=== PATIENT | female | born 1950 | race Caucasian/White ===

== ENCOUNTER 2019-09-10 14:56 | Inpatient (IN) | payer MEDICARE, OTHER ==
[~2019-09-10] VITALS: Ht 170.2 cm; Wt 71.9 kg
--- NOTE | 2019-09-10 16:24 | EKG ---
[address] [address] Test Date: 2019-09-10 Test Time: 16:20:06 Pat Name: FERNANDO SERNA Department: Room: Gender: F [employer]: THERESE : 1950 Requested By: YOSSI BRUNO Order Number: [id number] Reading MD: Measurements Intervals [place] Rate: 74 P: 10 VT: 168 QRS: 40 QRSD: 80 T: 50 QT: 366 QTc: 411 Interpretive Statements SINUS RHYTHM OTHERWISE NORMAL ECG RI6.01 No previous ECG available for comparison
[2019-09-10 16:40] LABS: BASO % 1 % (0-3); EOS % 0 % (0-3); HEMATOCRIT 37.1 % (36.0-47.0); LYMPH # 1.9 x10^3/uL (1.0-4.8); LYMPH % 27 % (24-48); MEAN CORPUSCULAR HEMOGLOBIN 29 pg (25-35); MEAN CORPUSCULAR HGB CONC 32 g/dL (31-37); MEAN CORPUSCULAR VOLUME 90 fL (79-100); MONO % 14 % (0-9); NEUT % 58 % (31-73); PLATELET COUNT 291 x10^3/uL (140-400); RED BLOOD COUNT 4.14 x10^6/uL (3.50-5.40); RED CELL DISTRIBUTION WIDTH 15.6 % (11.5-14.5); WHITE BLOOD COUNT 6.9 x10^3/uL (4.0-11.0)
[2019-09-10 16:51] LABS: BILIRUBIN,URINE NEG (NEG); CLARITY,URINE HAZY; COLOR,URINE YELLOW; GLUCOSE,URINE NEG (NEG)
[2019-09-10 16:52] LABS: BACTERIA,URINE 0 /HPF (0-FEW); NITRITE,URINE NEG (NEG); RBC,URINE OCC /HPF (0-2); UROBILINOGEN,URINE 4 mg/dL (0.2 mg/dL); WBC,URINE >40 /HPF (0-4)
[2019-09-10 16:53] LABS: SQUAMOUS EPITHELIAL CELL,UR OCC /LPF
[2019-09-10 17:06] LABS: ACETAMIN < 2.0 mcg/mL (10-30); SALIC 0.8 mg/dL (2.8-20.0)
[2019-09-10] MEDS ORDERED: DULO60CA6 PO (17:07)
[2019-09-10] MEDS ORDERED: BISM262O20 PO (17:07)
[2019-09-10] MEDS ORDERED: [UNRECOGNIZED DRUG - CODE] MM (17:07)
[2019-09-10] MEDS ORDERED: LIPITOR80 MG PO (17:07)
[2019-09-10] MEDS ORDERED: METF-551 PO (17:07)
[2019-09-10] MEDS ORDERED: LAMO25TA5 PO (17:07)
[2019-09-10] MEDS ORDERED: RISP1TAB3 PO (17:07)
[2019-09-10] MEDS ORDERED: CYAN100072 PO (17:07)
[2019-09-10] MEDS ORDERED: RISP0.5T3 PO (17:07)
[2019-09-10] MEDS ORDERED: CALC400T5 PO (17:07)
[2019-09-10] MEDS ORDERED: ASPI-171 PO (17:07)
[2019-09-10] MEDS ORDERED: METO25TA4 PO (17:07)
[2019-09-10] MEDS ORDERED: MELA5CAP PO (17:07)
[2019-09-10] MEDS ORDERED: PROM118S9 PO (17:07)
[2019-09-10] MEDS ORDERED: ACET325C6 PO (17:07)
[2019-09-10] MEDS ORDERED: DICL100G28 TP (17:07)
[2019-09-10] MEDS ORDERED: MAGN400O7 PO (17:07)
[2019-09-10] MEDS ORDERED: LOPE-101 PO (17:07)
[2019-09-10] MEDS ORDERED: TRAZ-86 PO (17:07)
[2019-09-10] MEDS ORDERED: MENT118G TP ×2 (17:07)
[2019-09-10] MEDS ORDERED: POLY17PO5 PO (17:07)
[2019-09-10] MEDS ORDERED: DEXT1DRO7 OU (17:07)
[2019-09-10] MEDS ORDERED: NITR100C62 PO (17:07)
[2019-09-10] MEDS ORDERED: FLUT9.9S NS (17:07)
--- NOTE | 2019-09-10 17:10 | RAD ---
Examination: TIBIA FIBULA RIGHT History: Pain, fall Comparison/Correlation: None Findings: 2 view examination of the right tibia and fibula was performed. Evaluation at the level of the ankle in the frontal view is limited due to mildly oblique positioning. Osteopenia is present. Vascular calcifications present. Narrowing of the ankle joint mortise about the medial and lateral plate like noted. Advanced degenerative remodeling of the lateral compartment is severe with spurring and significant valgus deformity. Bony density which appears well-corticated is noted dorsal to the talonavicular joint. No definite displaced fracture or bony destruction. Impression: Osteopenia. No definite acute fracture. Severe lateral knee compartment degenerative remodeling and valgus deformity. Electronically signed by: Duane Kowalski MD (09/10/2019 5:07 PM) [facility]
[2019-09-10 17:11] LABS: ALBUMIN 3.4 g/dL (3.4-5.0); ALBUMIN/GLOBULIN RATIO 0.9 (1.0-1.7); CALCIUM 9.2 mg/dL (8.5-10.1); CREATININE 0.5 mg/dL (0.6-1.0); GFR 122.7; MAGNESIUM 2.2 mg/dL (1.8-2.4); POTASSIUM 4.1 mmol/L (3.5-5.1); TOTAL BILIRUBIN 0.6 mg/dL (0.2-1.0); TOTAL PROTEIN 7.3 g/dL (6.4-8.2)
--- NOTE | 2019-09-10 17:16 | PHYS DOC ---
Adult General Chief Complaint Chief Complaint: MEDICAL CLEARANCE HPI HPI Patient is a [age] year old [sex] who presents with [] Review of Systems Review of Systems Constitutional: Denies fever or chills [] Eyes: Denies change in visual acuity, redness, or eye pain [] HENT: Denies nasal congestion or sore throat [] Respiratory: Denies cough or shortness of breath [] Cardiovascular: No additional information not addressed in HPI [] GI: Denies abdominal pain, nausea, vomiting, bloody stools or diarrhea [] : Denies dysuria or hematuria [] Musculoskeletal: Denies back pain or joint pain [] Integument: Denies rash or skin lesions [] Neurologic: Denies headache, focal weakness or sensory changes [] Endocrine: Denies polyuria or polydipsia [] All other systems were reviewed and found to be within normal limits, except as documented in this note. Allergies Allergies Allergies Coded Allergies Type Severity Reaction Last Updated Verified amitriptyline Allergy Unknown 09/10/19 Yes bupropion Allergy Unknown 09/10/19 Yes divalproex sodium Allergy Unknown 09/10/19 Yes erythromycin base Allergy Unknown 09/10/19 Yes hydrocodone Allergy Unknown 09/10/19 Yes loxapine Allergy Unknown 09/10/19 Yes molindone Allergy Unknown 09/10/19 Yes topiramate Allergy Unknown 09/10/19 Yes Physical Exam Physical Exam Constitutional: Well developed, well nourished, no acute distress, non-toxic appearance. [] HENT: Normocephalic, atraumatic, bilateral external ears normal, oropharynx moist, no oral exudates, nose normal. [] Eyes: PERRLA, EOMI, conjunctiva normal, no discharge. [] Neck: Normal range of motion, no tenderness, supple, no stridor. [] Cardiovascular:Heart rate regular rhythm, no murmur [] Lungs & Thorax: Bilateral breath sounds clear to auscultation [] Abdomen: Bowel sounds normal, soft, no tenderness, no masses, no pulsatile masses. [] Skin: Warm, dry, no erythema, no rash. [] Back: No tenderness, no CVA tenderness. [] Extremities: No tenderness, no cyanosis, no clubbing, ROM intact, no edema. [] Neurologic: Alert and oriented X 3, normal motor function, normal sensory function, no focal deficits noted. [] Psychologic: Affect normal, judgement normal, mood normal. [] Current Patient Data Lab Results Laboratory Tests Test 09/10/19 16:10 09/10/19 16:22 Urine Collection Type U cath Urine Color Yellow Urine Clarity Hazy Urine pH 6.5 Urine Specific [place] 1.025 Urine Protein 30 mg/dl (NEG-TRACE) Urine Glucose (UA) Neg mg/dL (NEG) Urine Ketones (Stick) Trace mg/dL (NEG) Urine Blood Neg (NEG) Urine Nitrite Neg (NEG) Urine Bilirubin Neg (NEG) Urine Urobilinogen Dipstick 4 mg/dL (0.2 mg/dL) Urine Leukocyte Esterase Mod (NEG) Urine RBC Occ /HPF (0-2) Urine WBC >40 /HPF (0-4) Urine Squamous Epithelial Cells Occ /LPF Urine Bacteria 0 /HPF (0-FEW) Urine Mucus Slight /LPF White Blood Count 6.9 x10^3/uL (4.0-11.0) Red Blood Count 4.14 x10^6/uL (3.50-5.40) Hemoglobin 12.0 g/dL (12.0-15.5) Hematocrit 37.1 % (36.0-47.0) Mean Corpuscular Volume 90 fL (79-100) Mean Corpuscular Hemoglobin 29 pg (25-35) Mean Corpuscular Hemoglobin Concent 32 g/dL (31-37) Red Cell Distribution Width 15.6 % (11.5-14.5) H Platelet Count 291 x10^3/uL (140-400) Neutrophils (%) (Auto) 58 % (31-73) Lymphocytes (%) (Auto) 27 % (24-48) Monocytes (%) (Auto) 14 % (0-9) H Eosinophils (%) (Auto) 0 % (0-3) Basophils (%) (Auto) 1 % (0-3) Neutrophils # (Auto) 4.0 x10^3uL (1.8-7.7) Lymphocytes # (Auto) 1.9 x10^3/uL (1.0-4.8) Monocytes # (Auto) 1.0 x10^3/uL (0.0-1.1) Eosinophils # (Auto) 0.0 x10^3/uL (0.0-0.7) Basophils # (Auto) 0.0 x10^3/uL (0.0-0.2) Prothrombin Time 10.8 SEC (9.4-11.4) Prothrombin Time INR 1.0 (0.9-1.1) Activated Partial Thromboplast Time 26 SEC (23-33) Troponin I Quantitative < 0.017 ng/mL (0-0.055) Salicylates Level 0.8 mg/dL (2.8-20.0) L Salicylate Last Dose Date Unk Salicylate Last Dose Time Unk Acetaminophen Level < 2.0 mcg/mL (10-30) L Acetaminophen Last Dose Date Unk Acetaminophen Last Dose Time Unk Ethyl Alcohol Level < 10 mg/dL (0-10) EKG EKG @ 1620 NSR at 74bpm, NO ST elevation, QRS 80ms, QT/QTc 366/411ms Radiology/Procedures Radiology/Procedures PROCEDURE: TIBIA FIBULA RIGHT Examination: TIBIA FIBULA RIGHT History: Pain, fall Comparison/Correlation: None Findings: 2 view examination of the right tibia and fibula was performed. Evaluation at the level of the ankle in the frontal view is limited due to mildly oblique positioning. Osteopenia is present. Vascular calcifications present. Narrowing of the ankle joint mortise about the medial and lateral plate like noted. Advanced degenerative remodeling of the lateral compartment is severe with spurring and significant valgus deformity. Bony density which appears well-corticated is noted dorsal to the talonavicular joint. No definite displaced fracture or bony destruction. Impression: Osteopenia. No definite acute fracture. Severe lateral knee compartment degenerative remodeling and valgus deformity. Electronically signed by: Duane Kowalski MD (09/10/2019 5:07 PM) [facility] PROCEDURE: CT HEAD AND CERVICAL SPINE WO Exam: CT head and cervical spine INDICATION: Status post fall TECHNIQUE: Sequential axial images through the head and cervical spine were obtained without the administration of IV contrast. Comparisons: None FINDINGS: Head No focal parenchymal lesion or hemorrhage is identified. There is no midline shift or sulcal effacement. No acute vascular territory infarction is identified. Rush-white distinction is preserved. The ventricular system is within normal limits without compression hydrocephalus. The basal cisterns are well maintained. Mild soft tissue contusion overlying the right frontal region scalp There is mucosal thickening within the maxillary sinuses bilaterally with air-fluid levels. Fluid is in frothy secretions are noted within the nasal cavity. No acute fractures. Cervical spine: Vertebral body heights and alignment are well-maintained. Fracture to the cervical spine is not identified. Multilevel spondylotic changes noted in the cervical spine with degenerative disc disease greatest at C6-C7 and C7-T1. Bilateral facet arthropathy is noted throughout the cervical spine. Visualized paraspinal soft tissues are unremarkable. IMPRESSION: 1. Extracranial soft tissue scalp contusion in the right frontal region. No underlying fracture or acute intracranial abnormality identified. 2. Sinus disease as described above. 3. Negative CT C-spine for acute traumatic injury. Exposure: One or more of the following in the visualized dose reduction techniques were utilized for this examination: 1. Automated exposure control 2. Adjustment of the MA and/or KV according to patient size Use of iterative of reconstructive technique Electronically signed by: Beatriz Engel MD (09/10/2019 5:10 PM) [facility] Course & Med Decision Making Course & Med Decision Making Pertinent Labs and Imaging studies reviewed. (See chart for details) [] Dragon Disclaimer Dragon Disclaimer This electronic medical record was generated, in whole or in part, using a voice recognition dictation system. Departure Departure: Impression: Primary Impression: Suicidal ideation Additional Impressions: UTI (urinary tract infection) Schizophrenia Hysteria Fall Contusion of right tibia Disposition: [facility]MITTED [facility]PAT[facility] ([facility] Condition: STABLE Referrals: PCP,UNKNOWN (PCP) Problem Qualifiers Additional Impressions: UTI (urinary tract infection) Urinary tract infection type: acute cystitis Hematuria presence: without hematuria Qualified Codes: N30.00 - Acute cystitis without hematuria Schizophrenia Schizophrenia type: unspecified Qualified Codes: F20.9 - Schizophrenia, unspecified Fall Encounter type: initial encounter Qualified Codes: W19.XXXA - Unspecified fall, initial encounter YOSSI BRUNO DO Sep 10, 2019 17:15
[2019-09-10] MEDS ORDERED: CEPHALEXIN 250 MG CAPSULE PO ONE (17:30)
[2019-09-10] MEDS ORDERED: LORazepam 1 MG TABLET ONE (17:37)
[2019-09-10] MEDS ORDERED: LORazepam 1 MG TABLET PO ONE (17:45)
[2019-09-10] MEDS ORDERED: LOPERAMIDE 2 MG CAPSULE PO PRN (18:30)
[2019-09-10] MEDS ORDERED: MAG HYDROX/AL HYDROX/SIMETH 30 ML ORAL.SUSP PO PRN (18:30)
[2019-09-10] MEDS ORDERED: MAGNESIUM HYDROXIDE 2,400 MG/30 ML ORAL.SUSP. PO PRN (18:30)
[2019-09-10] MEDS ORDERED: BISMUTH SUBSALICYLATE 262 MG/15 ML ORAL.SUSP 236ML BOTTLE. PO PRN (18:30)
[2019-09-10 18:42] VITALS: BP 110/75
[2019-09-10] MEDS ORDERED: BENZOCAINE/MENTHOL LOZNGE 18'S BOX. PO PRN (19:00)
[2019-09-10] MEDS ORDERED: CALCIUM CARBONATE 500 MG TAB.CHEW PO PRN (19:00)
[2019-09-10] MEDS: NITROFURANTOIN MONOHYD/M-CRYST 100 MG CAPSULE. PO SCH ×2 (20:13→20:15)
[2019-09-10] MEDS: MELATONIN 3 MG TABLET PO SCH (20:15)
[2019-09-10] MEDS: risperiDONE 1 MG TABLET. PO SCH (20:17)
[2019-09-10] MEDS: METOPROLOL TART IMMED RELEASE 25 MG TABLET PO SCH (20:17)
[2019-09-10] MEDS: traZODone 100 MG TABLET. PO SCH (20:17)
[2019-09-10] MEDS: METHYL SALICYLATE/MENTHOL TOPICAL OINTMENT 57GM TUBE. TP SCH (20:17)
[2019-09-10] MEDS: FLUTICASONE 50MCG/NASAL SPRAY 16GM BOTTLE. NS SCH (20:18)
[2019-09-10] MEDS: ATORVASTATIN CALCIUM 20 MG TABLET PO SCH (20:18)
--- NOTE | 2019-09-10 20:54 | PDOC ---
Exam Note: Lance Note: Please also refer to the separate dictated note~for this date of service dictated separately. Discussed the patient with Nursing staff reviewed the chart.~Reviewed interim history and current functioning. Reviewed vital signs,~Labs/ Radiology~and current medications noted below. Continue current treatment with the changes noted in the dictated addendum note Assessment: Vital Signs/I&O: Vital Signs Date Time Temp Pulse Resp B/P (MAP) Pulse Ox O2 Delivery O2 Flow Rate FiO2 09/10/19 20:17 85 110/75 09/10/19 18:42 97.5 18 100 09/10/19 17:30 Room Air Labs: Laboratory Tests Test 09/10/19 16:10 09/10/19 16:22 Urine Collection Type U cath Urine Color Yellow Urine Clarity Hazy Urine pH 6.5 Urine Specific [place] 1.025 Urine Protein 30 mg/dl (NEG-TRACE) Urine Glucose (UA) Neg mg/dL (NEG) Urine Ketones (Stick) Trace mg/dL (NEG) Urine Blood Neg (NEG) Urine Nitrite Neg (NEG) Urine Bilirubin Neg (NEG) Urine Urobilinogen Dipstick 4 mg/dL (0.2 mg/dL) Urine Leukocyte Esterase Mod (NEG) Urine RBC Occ /HPF (0-2) Urine WBC >40 /HPF (0-4) Urine Squamous Epithelial Cells Occ /LPF Urine Bacteria 0 /HPF (0-FEW) Urine Mucus Slight /LPF White Blood Count 6.9 x10^3/uL (4.0-11.0) Red Blood Count 4.14 x10^6/uL (3.50-5.40) Hemoglobin 12.0 g/dL (12.0-15.5) Hematocrit 37.1 % (36.0-47.0) Mean Corpuscular Volume 90 fL (79-100) Mean Corpuscular Hemoglobin 29 pg (25-35) Mean Corpuscular Hemoglobin Concent 32 g/dL (31-37) Red Cell Distribution Width 15.6 % (11.5-14.5) H Platelet Count 291 x10^3/uL (140-400) Neutrophils (%) (Auto) 58 % (31-73) Lymphocytes (%) (Auto) 27 % (24-48) Monocytes (%) (Auto) 14 % (0-9) H Eosinophils (%) (Auto) 0 % (0-3) Basophils (%) (Auto) 1 % (0-3) Neutrophils # (Auto) 4.0 x10^3uL (1.8-7.7) Lymphocytes # (Auto) 1.9 x10^3/uL (1.0-4.8) Monocytes # (Auto) 1.0 x10^3/uL (0.0-1.1) Eosinophils # (Auto) 0.0 x10^3/uL (0.0-0.7) Basophils # (Auto) 0.0 x10^3/uL (0.0-0.2) Prothrombin Time 10.8 SEC (9.4-11.4) Prothrombin Time INR 1.0 (0.9-1.1) Activated Partial Thromboplast Time 26 SEC (23-33) Sodium Level 138 mmol/L (136-145) Potassium Level 4.1 mmol/L (3.5-5.1) Chloride Level 102 mmol/L (98-107) Carbon Dioxide Level 25 mmol/L (21-32) Anion Gap 11 (6-14) Blood Urea Nitrogen 9 mg/dL (7-20) Creatinine 0.5 mg/dL (0.6-1.0) L Estimated GFR (Cockcroft-Gault) 122.7 BUN/Creatinine Ratio 18 (6-20) Glucose Level 75 mg/dL (70-99) Calcium Level 9.2 mg/dL (8.5-10.1) Magnesium Level 2.2 mg/dL (1.8-2.4) Total Bilirubin 0.6 mg/dL (0.2-1.0) Aspartate Amino Transferase (AST) 18 U/L (15-37) Alanine Aminotransferase (ALT) 15 U/L (14-59) Alkaline Phosphatase 101 U/L (46-116) Creatine Kinase 49 U/L (26-192) Creatine Kinase MB (Mass) 0.5 ng/mL (0.0-3.6) Creatine Kinase MB Relative Index 1.0 % (0-4) Troponin I Quantitative < 0.017 ng/mL (0-0.055) Total Protein 7.3 g/dL (6.4-8.2) Albumin 3.4 g/dL (3.4-5.0) Albumin/Globulin Ratio 0.9 (1.0-1.7) L Salicylates Level 0.8 mg/dL (2.8-20.0) L Salicylate Last Dose Date Unk Salicylate Last Dose Time Unk Acetaminophen Level < 2.0 mcg/mL (10-30) L Acetaminophen Last Dose Date Unk Acetaminophen Last Dose Time Unk Ethyl Alcohol Level < 10 mg/dL (0-10) Current Medications: Meds: Current Medications Medications (Trade) Dose Ordered Sig/Carson Route PRN Reason Start Time Stop Time Status Last Admin Dose Admin Cephalexin HCl (Keflex) 500 mg 1X ONCE PO 09/10/19 17:30 09/10/19 17:31 DC 09/10/19 17:30 Lorazepam (Ativan) 0.5 mg 1X ONCE PO 09/10/19 17:45 09/10/19 17:46 DC 09/10/19 17:41 Metoprolol Tartrate (Lopressor) 25 mg BID PO 09/10/19 21:00 09/10/19 20:17 Nitrofurantoin Macrocrystals (Macrobid) 100 mg BID PO 09/10/19 21:00 09/10/19 20:15 Risperidone (RisperDAL) 1 mg HS PO 09/10/19 21:00 09/10/19 20:17 Trazodone HCl (Desyrel) 100 mg HS PO 09/10/19 21:00 09/10/19 20:17 Atorvastatin Calcium (Lipitor) 80 mg QHS PO 09/10/19 21:00 09/10/19 20:18 Fluticasone Propionate (Flonase) 2 spray HS NS 09/10/19 21:00 09/10/19 20:18 Melatonin (Melatonin) 15 mg HS PO 09/10/19 21:00 09/10/19 20:15 Multi-Ingredient Ointment (Analgesic [place]) 1 vicky HS TP 09/10/19 21:00 09/10/19 20:17 I have reviewed the current psychotropics carefully including drug interactions. Risk benefit ratio favors no change other than as noted in my dictated progress note. Diagnosis: Problems: (1) Impulse control disorder (2) Anxiety disorder (3) Schizophrenia, disorganized, subchronic with acute exacerbation (4) Schizophrenia SHYANN HEBERT MD Sep 10, 2019 20:54
[2019-09-11] MEDS: guaiFENesin DM 200MG/20MG 10 ML SYRUP PO PRN ×2 (00:06→20:16)
[2019-09-11 05:17] VITALS: BP 103/60
[2019-09-11 08:08] LABS: BASO % 0 % (0-3); EOS % 0 % (0-3); HEMATOCRIT 37.2 % (36.0-47.0); LYMPH # 1.7 x10^3/uL (1.0-4.8); LYMPH % 29 % (24-48); MEAN CORPUSCULAR HEMOGLOBIN 29 pg (25-35); MEAN CORPUSCULAR HGB CONC 32 g/dL (31-37); MEAN CORPUSCULAR VOLUME 90 fL (79-100); MONO # 0.8 x10^3/uL (0.0-1.1); MONO % 13 % (0-9); NEUT # 3.4 x10^3uL (1.8-7.7); NEUT % 58 % (31-73); PLATELET COUNT 297 x10^3/uL (140-400); RED BLOOD COUNT 4.15 x10^6/uL (3.50-5.40); RED CELL DISTRIBUTION WIDTH 15.6 % (11.5-14.5); WHITE BLOOD COUNT 5.9 x10^3/uL (4.0-11.0)
[2019-09-11 08:25] LABS: ALBUMIN 3.7 g/dL (3.4-5.0); CALCIUM 9.2 mg/dL (8.5-10.1); CREATININE 0.6 mg/dL (0.6-1.0); GFR 99.4; MAGNESIUM 1.9 mg/dL (1.8-2.4); POTASSIUM 3.4 mmol/L (3.5-5.1); TOTAL BILIRUBIN 0.6 mg/dL (0.2-1.0); TOTAL PROTEIN 7.5 g/dL (6.4-8.2)
[2019-09-11] MEDS: ASPIRIN ENTERIC COATED 81 MG TABLET.DR. PO SCH (08:36)
[2019-09-11] MEDS: risperiDONE 0.5 MG TABLET. PO SCH ×2 (08:36→16:43)
[2019-09-11] MEDS: metFORMIN 500 MG TABLET PO SCH ×2 (08:36→16:43)
[2019-09-11] MEDS: POLYETHYLENE GLYCOL 3350 17 GM PACKET. PO SCH (08:36)
[2019-09-11] MEDS: CYANOCOBALAMIN (VITAMIN B-12) 1,000 MCG TABLET. PO SCH (08:36)
[2019-09-11] MEDS: DULoxetine HCL 60 MG CAPSULE.DR PO SCH ×2 (08:36→16:43)
[2019-09-11] MEDS: FLUTICASONE 50MCG/NASAL SPRAY 16GM BOTTLE. NS SCH (08:37)
[2019-09-11 08:39] VITALS: BP 123/78
[2019-09-11] MEDS: METOPROLOL TART IMMED RELEASE 25 MG TABLET PO SCH ×2 (08:40→21:00)
[2019-09-11] MEDS ORDERED: lamoTRIgine 25 MG TABLET. PO SCH (09:00)
[2019-09-11 10:48] LABS: THYROID STIM HORMONE (TSH) 1.097 uIU/mL (0.358-3.740)
[2019-09-11 12:07] LABS: THYROXINE 11.1 ug/dL (4.5-12.0)
[2019-09-11 15:57] VITALS: BP 93/56
[2019-09-11] MEDS: traZODone 100 MG TABLET. PO SCH (20:17)
[2019-09-11] MEDS: ATORVASTATIN CALCIUM 20 MG TABLET PO SCH (20:17)
[2019-09-11] MEDS: NITROFURANTOIN MONOHYD/M-CRYST 100 MG CAPSULE. PO SCH (20:17)
[2019-09-11] MEDS: risperiDONE 1 MG TABLET. PO SCH (20:17)
[2019-09-11] MEDS: MELATONIN 3 MG TABLET PO SCH (20:17)
[2019-09-11] MEDS: METHYL SALICYLATE/MENTHOL TOPICAL OINTMENT 57GM TUBE. TP SCH (20:18)
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
--- NOTE | 2019-09-11 20:47 | PDOC ---
Exam Note: Lance Note: Please also refer to the separate dictated note~for this date of service dictated separately.~Patient seen individually. Discussed the patient with Nursing staff reviewed the chart.~Reviewed interim history and current functioning. Reviewed vital signs,~Labs/ Radiology~and current medications noted below. Continue current treatment with the changes noted in the dictated addendum note Assessment: Vital Signs/I&O: Vital Signs Date Time Temp Pulse Resp B/P (MAP) Pulse Ox O2 Delivery O2 Flow Rate FiO2 09/11/19 15:57 97.2 79 20 93/56 (68) 97 09/11/19 05:17 Room Air I & O 09/10/19 09/10/19 09/11/19 15:00 23:00 07:00 Intake Total 120 ml Balance 120 ml Labs: Laboratory Tests Test 09/11/19 07:20 09/11/19 07:21 White Blood Count 5.9 x10^3/uL (4.0-11.0) Red Blood Count 4.15 x10^6/uL (3.50-5.40) Hemoglobin 12.0 g/dL (12.0-15.5) Hematocrit 37.2 % (36.0-47.0) Mean Corpuscular Volume 90 fL (79-100) Mean Corpuscular Hemoglobin 29 pg (25-35) Mean Corpuscular Hemoglobin Concent 32 g/dL (31-37) Red Cell Distribution Width 15.6 % (11.5-14.5) H Platelet Count 297 x10^3/uL (140-400) Neutrophils (%) (Auto) 58 % (31-73) Lymphocytes (%) (Auto) 29 % (24-48) Monocytes (%) (Auto) 13 % (0-9) H Eosinophils (%) (Auto) 0 % (0-3) Basophils (%) (Auto) 0 % (0-3) Neutrophils # (Auto) 3.4 x10^3uL (1.8-7.7) Lymphocytes # (Auto) 1.7 x10^3/uL (1.0-4.8) Monocytes # (Auto) 0.8 x10^3/uL (0.0-1.1) Eosinophils # (Auto) 0.0 x10^3/uL (0.0-0.7) Basophils # (Auto) 0.0 x10^3/uL (0.0-0.2) Sodium Level 140 mmol/L (136-145) Potassium Level 3.4 mmol/L (3.5-5.1) L Chloride Level 101 mmol/L (98-107) Carbon Dioxide Level 27 mmol/L (21-32) Anion Gap 12 (6-14) Blood Urea Nitrogen 8 mg/dL (7-20) Creatinine 0.6 mg/dL (0.6-1.0) Estimated GFR (Cockcroft-Gault) 99.4 BUN/Creatinine Ratio 13 (6-20) Glucose Level 95 mg/dL (70-99) Calcium Level 9.2 mg/dL (8.5-10.1) Magnesium Level 1.9 mg/dL (1.8-2.4) Iron Level 47 ug/dL (50-170) L Total Iron Binding Capacity 258 ug/dL (250-450) Iron Saturation 18 % (15-34) Total Bilirubin 0.6 mg/dL (0.2-1.0) Aspartate Amino Transferase (AST) 17 U/L (15-37) Alanine Aminotransferase (ALT) 15 U/L (14-59) Alkaline Phosphatase 106 U/L (46-116) Total Protein 7.5 g/dL (6.4-8.2) Albumin 3.7 g/dL (3.4-5.0) Albumin/Globulin Ratio 1.0 (1.0-1.7) Triglycerides Level 63 mg/dL (0-150) Cholesterol Level 103 mg/dL (0-200) LDL Cholesterol, Calculated 53 mg/dL (0-100) VLDL Cholesterol, Calculated 12 mg/dL (0-40) Non-HDL Cholesterol Calculated 65 mg/dL (0-129) HDL Cholesterol 38 mg/dL (40-60) L Cholesterol/HDL Ratio 2.0 Thyroid Stimulating Hormone (TSH) 1.097 uIU/mL (0.358-3.740) Thyroxine (T4) 11.1 ug/dL (4.5-12.0) Total Triiodothyronine (TT3) 104 ng/dL (71-180) Glucose (Fingerstick) 79 mg/dL (70-99) Current Medications: Meds: Current Medications Medications (Trade) Dose Ordered Sig/Carson Route PRN Reason Start Time Stop Time Status Last Admin Dose Admin Aspirin (Aspirin Enteric Coated) 81 mg DAILY PO 09/11/19 09:00 09/11/19 08:36 Cyanocobalamin (Vitamin B-12) 1,000 mcg DAILY PO 09/11/19 09:00 09/11/19 08:36 Duloxetine HCl (Cymbalta) 60 mg BIDWMEALS PO 09/11/19 08:00 09/11/19 19:19 DC 09/11/19 16:43 Lamotrigine (LaMICtal) 25 mg DAILY PO 09/11/19 09:00 09/11/19 19:19 DC 09/11/19 08:36 Metoprolol Tartrate (Lopressor) 25 mg BID PO 09/10/19 21:00 09/11/19 08:40 Nitrofurantoin Macrocrystals (Macrobid) 100 mg BID PO 09/10/19 21:00 09/11/19 20:17 Polyethylene Glycol (miraLAX) 17 gm DAILY PO 09/11/19 09:00 09/11/19 08:36 Risperidone (RisperDAL) 0.5 mg BID94 PO 09/11/19 09:00 09/11/19 16:43 Risperidone (RisperDAL) 1 mg HS PO 09/10/19 21:00 09/11/19 20:17 Trazodone HCl (Desyrel) 100 mg HS PO 09/10/19 21:00 09/11/19 20:17 Atorvastatin Calcium (Lipitor) 80 mg QHS PO 09/10/19 21:00 09/11/19 20:17 Fluticasone Propionate (Flonase) 2 spray HS NS 09/10/19 21:00 09/11/19 08:37 Melatonin (Melatonin) 15 mg HS PO 09/10/19 21:00 09/11/19 20:17 Multi-Ingredient Ointment (Analgesic [place]) 1 vicky HS TP 09/10/19 21:00 09/11/19 20:18 Metformin HCl (Glucophage) 1,000 mg BIDWMEALS PO 09/11/19 08:00 09/11/19 16:43 I have reviewed the current psychotropics carefully including drug interactions. Risk benefit ratio favors no change other than as noted in my dictated progress note. Diagnosis: Problems: (1) Impulse control disorder (2) Anxiety disorder (3) Schizoaffective disorder, chronic condition with acute exacerbation (4) Schizophrenia (5) Suicidal ideation (6) Schizoaffective disorder, bipolar type SHYANN HEBERT MD Sep 11, 2019 20:47
[2019-09-11] MEDS ORDERED: traZODone 100 MG TABLET. PO PRN (22:00)
[2019-09-11] MEDS: ACETAMINOPHEN 325 MG TABLET PO PRN (22:28)
[2019-09-11 23:06] LABS: HEMOGLOBIN A1C 5.5 % (4.8-5.6)
[2019-09-12] MEDS: CYANOCOBALAMIN (VITAMIN B-12) 1,000 MCG TABLET. PO SCH (06:05)
[2019-09-12] MEDS: metFORMIN 500 MG TABLET PO SCH ×2 (06:05→16:04)
[2019-09-12] MEDS: ASPIRIN ENTERIC COATED 81 MG TABLET.DR. PO SCH (06:06)
[2019-09-12] MEDS: risperiDONE 0.5 MG TABLET. PO SCH ×2 (06:06→16:04)
[2019-09-12] MEDS: NITROFURANTOIN MONOHYD/M-CRYST 100 MG CAPSULE. PO SCH ×2 (06:06→17:56)
[2019-09-12] MEDS: POLYETHYLENE GLYCOL 3350 17 GM PACKET. PO SCH (06:06)
[2019-09-12] MEDS: METOPROLOL TART IMMED RELEASE 25 MG TABLET PO SCH ×2 (06:07→17:56)
[2019-09-12 06:31] VITALS: BP 111/70
--- NOTE | 2019-09-12 08:11 | RAD ---
Exam performed: X-ray left foot 3 views HISTORY: Left foot pain and tenderness. DATE OF SERVICE: 09/12/2019. COMPARISON: None available FINDINGS: AP, lateral and oblique views of the left foot are obtained. There is generalized osteopenia. Mild hallux valgus deformity of the left great toe is seen. There are postoperative changes about the ankle joint with a sideplate and screw along the distal fibula. 2 pins are seen along the medial malleolus. There is no acute fracture, dislocation, bony erosion or periosteal reaction. Extensive soft tissue swelling is identified. IMPRESSION: Generalized osteopenia with diffuse soft tissue swelling. Postoperative changes about the distal tibia and fibula noted. No acute abnormality seen. Electronically signed by: Jessica Amato MD (09/12/2019 8:08 AM) [facility]
[2019-09-12] MEDS ORDERED: DULoxetine HCL 60 MG CAPSULE.DR PO SCH (09:00)
[2019-09-12] MEDS: ACETAMINOPHEN 325 MG TABLET PO PRN ×2 (10:08→16:04)
[2019-09-12] MEDS: DULoxetine HCL 30 MG CAPSULE.DR PO SCH (10:15)
[2019-09-12] MEDS: DULoxetine HCL 60 MG CAPSULE.DR PO SCH (10:15)
[2019-09-12 16:10] VITALS: BP 118/74
[2019-09-12] MEDS: FLUTICASONE 50MCG/NASAL SPRAY 16GM BOTTLE. NS SCH (17:54)
[2019-09-12] MEDS: traZODone 100 MG TABLET. PO SCH (17:55)
[2019-09-12] MEDS: risperiDONE 1 MG TABLET. PO SCH (17:56)
[2019-09-12] MEDS: ATORVASTATIN CALCIUM 20 MG TABLET PO SCH (17:56)
[2019-09-12] MEDS: METHYL SALICYLATE/MENTHOL TOPICAL OINTMENT 57GM TUBE. TP SCH (17:57)
--- NOTE | 2019-09-12 20:33 | PDOC ---
Exam Note: Lance Note: Please also refer to the separate dictated note~for this date of service dictated separately.~Patient seen individually. Discussed the patient with Nursing staff reviewed the chart.~Reviewed interim history and current functioning. Reviewed vital signs,~Labs/ Radiology~and current medications noted below. Continue current treatment with the changes noted in the dictated addendum note Assessment: Vital Signs/I&O: Vital Signs Date Time Temp Pulse Resp B/P (MAP) Pulse Ox O2 Delivery O2 Flow Rate FiO2 09/12/19 17:56 89 118/74 09/12/19 16:10 97.4 20 99 09/11/19 05:17 Room Air I & O 09/11/19 09/11/19 09/12/19 15:00 23:00 07:00 Intake Total 720 ml 580 ml Balance 720 ml 580 ml Labs: Laboratory Tests Test 09/12/19 07:32 Glucose (Fingerstick) 108 mg/dL (70-99) H Current Medications: Meds: Current Medications Medications (Trade) Dose Ordered Sig/Carson Route PRN Reason Start Time Stop Time Status Last Admin Dose Admin Trazodone HCl (Desyrel) 100 mg PRN QHS PRN PO insomnia 09/11/19 22:00 09/11/19 22:29 Duloxetine HCl (Cymbalta) 30 mg DAILY PO 09/12/19 10:00 09/12/19 10:15 Duloxetine HCl (Cymbalta) 60 mg DAILY PO 09/12/19 10:00 09/12/19 10:15 I have reviewed the current psychotropics carefully including drug interactions. Risk benefit ratio favors no change other than as noted in my dictated progress note. Diagnosis: Problems: (1) Schizoaffective disorder, bipolar type (2) Schizophrenia (3) Suicidal ideation (4) Anxiety disorder (5) Impulse control disorder (6) Schizoaffective disorder, chronic condition with acute exacerbation (7) Schizophrenia, disorganized, subchronic with acute exacerbation SHYANN HEBERT MD Sep 12, 2019 20:33
[2019-09-12] MEDS: POTASSIUM CHLORIDE 20 MEQ TABLET.ER. PO SCH (21:20)
[2019-09-12] MEDS: MELATONIN 3 MG TABLET PO SCH (21:20)
[2019-09-12] MEDS: guaiFENesin DM 200MG/20MG 10 ML SYRUP PO PRN (22:01)
--- NOTE | 2019-09-12 23:52 | PN ---
DATE: 09/11/2019 PSYCHIATRIC PROGRESS NOTE This late entry 09/11/2019 covers elements not covered in my initial note. SUBJECTIVE: I met with the patient evening of 09/11/2019. The patient slept 5-1/2 hours previous night. She continues to be somewhat hypomanic with mood vacillation, tearful in the morning, then laughing at times. REVIEW OF SYSTEMS: No CV, , pulmonary, eye system symptoms on review. MENTAL STATUS EXAM: Reasonably oriented. Speech coherent, rapid at times. Abstraction fair, computation impaired, language function intact, attention span short. Mood and affect remains labile. LABORATORY DATA: Reviewed. IMPRESSION: Schizoaffective disorder, bipolar type, mixed with psychotic features. Rest unchanged. PLAN: We have reduced the Cymbalta to 90 mg a day, may need to reduce this further since this could be exacerbating her manic symptoms. Stop the Lamictal. Continue trazodone, melatonin, Risperdal. I had wanted to start her on TRILEPTAL as a mood stabilizer, but there is a cross reactivity with amitriptyline, which is something she is allergic to having suffered a seizure from that and we will have to avoid this. We may have to defer to increasing the Risperdal to control her moods or consider Tegretol. Processed and discussed with nursing staff on 2 or 3 occasions and I was called by the nursing staff even after I left the unit following a pharmacy consult. MAN Bradly HEBERT MD DR: ARIEL/ayah JOB#: [id number] / [id number]
--- NOTE | 2019-09-13 00:46 | CONS ---
DATE OF CONSULTATION: 09/11/2019 REASON FOR CONSULTATION: Medical management. HISTORY OF PRESENT ILLNESS: The patient is a 69-year-old female patient, a resident at [facility], who was [facility] on account of being distressed and tearful, putting herself on the floor, requesting to go to [facility] and making suicidal statement, although apparently she denied that when she arrived here. All this in a background of schizoaffective disorder with acute exacerbation. Medically, she has multiple medical problems including hypertension, gastroesophageal reflux disease, and dysphagia, rheumatoid arthritis. She has muscle weakness, hyperlipidemia, type 2 diabetes. PAST SURGICAL HISTORY: Significant for right ankle fracture, status post open reduction and internal fixation. PAST PSYCHIATRIC HISTORY: Significant for paranoid schizophrenia. She has also cognitive communication deficits and anxiety disorder and major depressive disorder. ALLERGIES: SHE IS ALLERGIC TO AMITRIPTYLINE, WELLBUTRIN, DIVALPROEX SODIUM, ERYTHROMYCIN, HYDROCODONE, LOXAPINE, MOLINDONE AND TOPIRAMATE. MEDICATIONS: She is currently on following medications: She is on nitrofurantoin 100 mg twice a day for UTI, atorvastatin calcium 80 mg at bedtime, metoprolol tartrate 25 mg twice a day, aspirin 81 mg once a day, diclofenac sodium 1 gram applied topically every 6 hours, Tylenol 650 mg every 6 hours, lamotrigine 25 mg once a day, duloxetine for Cymbalta 60 mg twice a day, trazodone 100 mg at bedtime, risperidone 0.5 mg p.o. b.i.d., risperidone 1 mg at bedtime. She is on dextromethorphan with promethazine 5 mL every 8 hours as needed. She is on Flonase 2 sprays to each nostril once a day, dextran/hypromellose artificial tears 1 drop to both eyes every 8 hours as needed. She is on Pectin lozenge for throat drops 6 mg every 2 hours as needed, calcium carbonate for Tums Ultra 1000 mg as needed, bismuth subsalicylate for Pepto-Bismol 3 mL every 3 hours as needed, loperamide 2 mg every 4 hours, milk of magnesia 30 mL p.o. daily p.r.n. for constipation. She is on polyethylene glycol 17 grams daily, metformin 1000 mg extended release twice a day, Biofreeze 1 application topical every 4 hours and melatonin 50 mg at bedtime. FAMILY HISTORY: Noncontributory. SOCIAL HISTORY: She is a resident at [facility]. She apparently does not smoke, drink alcohol or use any recreational drugs. PHYSICAL EXAMINATION: GENERAL: When I examined her this afternoon, she was sitting comfortably in her wheelchair, in no apparent distress. She is complaining of pain in her left foot and left ankle. She apparently has had a history of fracture of left ankle, status post open reduction and internal fixation. She also has a markedly deformed left ankle joint consistent with neuropathic arthropathy likely because of her diabetes. She has tenderness on palpation over the dorsum of her left foot and also left ankle joint; however, the nursing staff stated that she was evaluated by physical therapy and was able to walk with a walker. VITAL SIGNS: Her heart rate was 79, blood pressure was 93/56, temperature was 97.2, respiratory rate 20, and oxygen saturation was 97%. HEAD, EYES, EARS, NOSE AND THROAT: Showed normocephalic, atraumatic. NECK: Supple. CARDIAC: Normal first and second heart sounds. No gallop or murmur. CHEST: Clear to auscultation. No crepitation or rhonchi. ABDOMEN: Slightly distended, soft, nontender. NEUROLOGIC: She is awake, alert, responding appropriately. All cranial nerves intact. EXTREMITIES: She moves extremities without difficulty. LABORATORY DATA: On arrival showed a white cell count of 5900, hemoglobin 12, hematocrit 37, MCV 90 and platelet count 297,000. Her chemistry showed a serum sodium 140, potassium 3.4, chloride 101, bicarbonate 27, anion gap of 12, BUN 8, creatinine 0.6, estimated GFR was 99 mL per minute. Her glucose was 95, calcium was 9.2, magnesium was 1.9. Serum iron was 47, TIBC was 258 and iron saturation was 18. Total bilirubin, AST, ALT, alkaline phosphatase were normal. Her total protein was 7.5, albumin was 3.7. Her serum triglycerides were 63, total cholesterol 103, LDL cholesterol was 53, VDL was 12, HDL cholesterol was 38 and the ratio was 2. Her TSH, total T4, and total T3 are all within normal range. Her prothrombin time, INR and aPTT were normal. Urinalysis showed that she has more than 40 wbc's, occasional rbc's, moderate amount of leukocyte esterase, it was negative for nitrite and no bacteria. Her toxic screen showed that her salicylate was 0.8 with therapeutic range between 2.8 and 20, and for her acetaminophen it was less than 2 with the therapeutic range between 10-30. She did have x-ray of her tibia and fibula, which showed that osteopenia is present, vascular calcification present, narrowing of the ankle joint, mortise about the medial and lateral plate likely noted. Advanced degenerative remodeling of the lateral compartment is severe with spurring and significant valgus deformity. Bony density which appears well corticated is noted dorsal to the talonavicular joint. No definite displaced fracture or bony destruction. CT scan of the head and cervical spine showed no focal parenchymal lesion or hemorrhage identified. There is no midline shift or sulcal effacement, no acute vascular territory infarction identified. [place] white distinction is preserved. The ventricular system is within normal limits without compression hydrocephalus. Basal cisterns are well maintained. There is mild soft tissue contusion overlying the right frontal region scalp. There is mucosal thickening within the maxillary sinuses bilaterally with air fluid levels. Fluid is in frothy secretion are noted within the nasal cavity, no acute fracture. The vertebral body heights of the cervical spine and alignment are well maintained. Fracture to the cervical spine is not identified. Multilevel spondylitic changes noted in the cervical spine with degenerative disk disease, greatest at C6-C7 and C7-T1, bilateral facet arthropathy is noted throughout the cervical spine. ASSESSMENT AND PLAN: In summary, this is a 69-year-old female patient, a resident at [facility], who was admitted on account of being distressed and tearful putting herself to the floor, requesting to go to the [facility] and making suicidal ideation. All this in a background of schizoaffective disorder. She has multiple medical problems that seemed to be generally stable. She is complaining of pain in her left foot and left ankle joint. I will arrange for her to have an x-ray of her left foot and if she continues we might have to consider a bone scan. Thank you, Dr. Núñez for allowing me to participate in the care of this patient. ALBINA SCHAFFER MD DR: SHARATH/ayah JOB#: [id number] / [id number]
[2019-09-13 05:48] VITALS: BP 125/77
[2019-09-13] MEDS: POLYETHYLENE GLYCOL 3350 17 GM PACKET. PO SCH (08:31)
[2019-09-13] MEDS: NITROFURANTOIN MONOHYD/M-CRYST 100 MG CAPSULE. PO SCH ×2 (08:31→21:21)
[2019-09-13] MEDS: POTASSIUM CHLORIDE 20 MEQ TABLET.ER. PO SCH ×2 (08:31→21:22)
[2019-09-13] MEDS: DULoxetine HCL 30 MG CAPSULE.DR PO SCH (08:31)
[2019-09-13] MEDS: metFORMIN 500 MG TABLET PO SCH ×2 (08:31→16:04)
[2019-09-13] MEDS: risperiDONE 0.5 MG TABLET. PO SCH ×2 (08:31→16:04)
[2019-09-13] MEDS: ASPIRIN ENTERIC COATED 81 MG TABLET.DR. PO SCH (08:32)
[2019-09-13] MEDS: METOPROLOL TART IMMED RELEASE 25 MG TABLET PO SCH ×2 (08:33→21:24)
[2019-09-13] MEDS: DULoxetine HCL 60 MG CAPSULE.DR PO SCH (08:33)
[2019-09-13] MEDS: CYANOCOBALAMIN (VITAMIN B-12) 1,000 MCG TABLET. PO SCH (08:33)
[2019-09-13] MEDS: ACETAMINOPHEN 325 MG TABLET PO PRN (08:39)
[2019-09-13] MEDS: DICLOFENAC SODIUM 1% TOPICAL GEL 100GM TUBE. TP PRN (13:37)
[2019-09-13 15:40] VITALS: BP 98/64
--- NOTE | 2019-09-13 20:11 | PDOC ---
Exam Note: Lance Note: Please also refer to the separate dictated note~for this date of service dictated separately.~Patient seen individually. Discussed the patient with Nursing staff reviewed the chart.~Reviewed interim history and current functioning. Reviewed vital signs,~Labs/ Radiology~and current medications noted below. Continue current treatment with the changes noted in the dictated addendum note Assessment: Vital Signs/I&O: Vital Signs Date Time Temp Pulse Resp B/P (MAP) Pulse Ox O2 Delivery O2 Flow Rate FiO2 09/13/19 15:40 97.9 90 16 98/64 (75) 95 09/13/19 05:48 Room Air I & O 09/12/19 09/12/19 09/13/19 14:59 22:59 06:59 Intake Total 960 ml 480 ml 100 ml Balance 960 ml 480 ml 100 ml Labs: Laboratory Tests Test 09/13/19 07:34 Glucose (Fingerstick) 89 mg/dL (70-99) Current Medications: Meds: Current Medications Medications (Trade) Dose Ordered Sig/Carson Route PRN Reason Start Time Stop Time Status Last Admin Dose Admin Melatonin (Melatonin) 5 mg HS PO 09/12/19 21:00 09/12/19 21:20 Potassium Chloride (Klor-Con) 20 meq BID PO 09/12/19 21:00 09/13/19 08:31 I have reviewed the current psychotropics carefully including drug interactions. Risk benefit ratio favors no change other than as noted in my dictated progress note. Diagnosis: Problems: (1) Schizoaffective disorder, bipolar type (2) Fall (3) Suicidal ideation (4) Anxiety disorder (5) Impulse control disorder (6) Schizoaffective disorder, chronic condition with acute exacerbation SHYANN HEBERT MD Sep 13, 2019 20:11
[2019-09-13] MEDS: risperiDONE 1 MG TABLET. PO SCH (21:20)
[2019-09-13] MEDS: ATORVASTATIN CALCIUM 20 MG TABLET PO SCH (21:22)
[2019-09-13] MEDS: MELATONIN 3 MG TABLET PO SCH (21:22)
[2019-09-13] MEDS: traZODone 100 MG TABLET. PO SCH (21:23)
[2019-09-13] MEDS: METHYL SALICYLATE/MENTHOL TOPICAL OINTMENT 57GM TUBE. TP SCH (21:23)
[2019-09-13] MEDS: FLUTICASONE 50MCG/NASAL SPRAY 16GM BOTTLE. NS SCH (21:23)
--- NOTE | 2019-09-14 00:56 | PN ---
DATE: 09/12/2019 PSYCHIATRIC PROGRESS NOTE This late entry 09/12/2019 covers the elements not covered in my initial note. SUBJECTIVE: I met with the patient in the evening of 09/12/2019. The patient slept reasonably previous night. She remains somewhat hyperverbal, hypomanic, at times grandiose with ongoing mood lability. I met with her at length in her room. REVIEW OF SYSTEMS: No CV, , pulmonary, eye system symptoms on review, ambulation impaired, in wheelchair. MENTAL STATUS EXAM: Oriented to herself and situation. Speech coherent, rapid at times. She wanted me to sit down in her room because she had "a lot of things to talk about". She was talking about some psychosocial events and we will have the social service staff address this with her. Reasonably oriented. Speech coherent, rapid at times. Abstraction fair, computation impaired, language function intact. Mood and affect remain somewhat labile, grandiose at times. LABORATORY DATA: Reviewed. IMPRESSION: Schizoaffective disorder, bipolar type, mixed with psychotic features. Rest unchanged. PLAN: Reduce Cymbalta from 90 mg a day to 60 mg a day to reduce the propensity for antidepressants to increase her bipolar mood swings. Maintain Risperdal total 2 mg a day. Add consider Tegretol and Trileptal as a mood stabilizer since she is allergic to DEPAKOTE, but pharmacy staff indicated they were contraindicated given her ALLERGY TO AMITRIPTYLINE. We will have to reassess what other options we have, but for now, we will work with the Risperdal and reducing the Cymbalta. SHYANN HEBERT MD DR: ARIEL/ayah JOB#: [id number] / [id number]
[2019-09-14 06:23] VITALS: BP 127/68
[2019-09-14] MEDS: metFORMIN 500 MG TABLET PO SCH ×2 (09:06→17:07)
[2019-09-14] MEDS: CYANOCOBALAMIN (VITAMIN B-12) 1,000 MCG TABLET. PO SCH (09:06)
[2019-09-14] MEDS: METOPROLOL TART IMMED RELEASE 25 MG TABLET PO SCH ×2 (09:06→20:22)
[2019-09-14] MEDS: DULoxetine HCL 60 MG CAPSULE.DR PO SCH (09:07)
[2019-09-14] MEDS: ASPIRIN ENTERIC COATED 81 MG TABLET.DR. PO SCH (09:07)
[2019-09-14] MEDS: POTASSIUM CHLORIDE 20 MEQ TABLET.ER. PO SCH ×2 (09:07→20:21)
[2019-09-14] MEDS: NITROFURANTOIN MONOHYD/M-CRYST 100 MG CAPSULE. PO SCH ×2 (09:07→20:22)
[2019-09-14] MEDS: DULoxetine HCL 30 MG CAPSULE.DR PO SCH (09:07)
[2019-09-14] MEDS: risperiDONE 0.5 MG TABLET. PO SCH ×2 (09:07→17:07)
[2019-09-14] MEDS: POLYETHYLENE GLYCOL 3350 17 GM PACKET. PO SCH (09:08)
[2019-09-14 16:11] VITALS: BP 101/68
[2019-09-14] MEDS: ACETAMINOPHEN 325 MG TABLET PO PRN (17:23)
--- NOTE | 2019-09-14 19:57 | PDOC ---
Exam Note: Lance Note: Please also refer to the separate dictated note~for this date of service dictated separately.~Patient seen individually. Discussed the patient with Nursing staff reviewed the chart.~Reviewed interim history and current functioning. Reviewed vital signs,~Labs/ Radiology~and current medications noted below. Continue current treatment with the changes noted in the dictated addendum note Assessment: Vital Signs/I&O: Vital Signs Date Time Temp Pulse Resp B/P (MAP) Pulse Ox O2 Delivery O2 Flow Rate FiO2 09/14/19 16:11 97.6 84 16 101/68 (79) 98 09/13/19 05:48 Room Air I & O 09/13/19 09/13/19 09/14/19 15:00 23:00 07:00 Intake Total 600 ml 480 ml 120 ml Balance 600 ml 480 ml 120 ml Labs: Laboratory Tests Test 09/14/19 08:28 Glucose (Fingerstick) 96 mg/dL (70-99) Current Medications: I have reviewed the current psychotropics carefully including drug interactions. Risk benefit ratio favors no change other than as noted in my dictated progress note. Diagnosis: Problems: (1) Schizoaffective disorder, bipolar type (2) Suicidal ideation (3) Anxiety disorder (4) Impulse control disorder (5) Schizoaffective disorder, chronic condition with acute exacerbation SHYANN HEBERT MD Sep 14, 2019 19:57
[2019-09-14] MEDS: FLUTICASONE 50MCG/NASAL SPRAY 16GM BOTTLE. NS SCH (20:20)
[2019-09-14] MEDS: LITHIUM CARBONATE 300 MG TABLET PO SCH (20:21)
[2019-09-14] MEDS: traZODone 100 MG TABLET. PO SCH (20:21)
[2019-09-14] MEDS: ATORVASTATIN CALCIUM 20 MG TABLET PO SCH (20:22)
[2019-09-14] MEDS: METHYL SALICYLATE/MENTHOL TOPICAL OINTMENT 57GM TUBE. TP SCH (20:23)
[2019-09-14] MEDS: risperiDONE 1 MG TABLET. PO SCH (20:23)
[2019-09-14] MEDS: MELATONIN 3 MG TABLET PO SCH (20:23)
--- NOTE | 2019-09-14 20:24 | PN ---
DATE: 09/13/2019 This late entry, 09/13/2019, covers the elements not covered in my initial note. SUBJECTIVE: I met with the patient evening of 09/13/2019. Per SONIYA Tong, patient slept 6 hours previous night. She has been compliant with medications, somewhat tearful at times, other times happy with marked mood lability and then sobbing. She complains of her legs hurting. No CV, , pulmonary, or eye system symptoms on review. MENTAL STATUS EXAM: The patient is reasonably oriented. Speech coherent, rapid at times, pressured. Abstraction fair, computation impaired, language function intact, and attention span short. Mood and affect remains labile. LABORATORY DATA: Reviewed. IMPRESSION: Schizoaffective disorder, bipolar type, mixed with psychotic features. Rest unchanged. PLAN: Reduce the Cymbalta to 60 mg, day 2, given her manic symptoms. Continue rest unchanged. May consider Tegretol or lithium as a mood stabilizer. SHYANN HEBERT MD DR: ARIEL/ayah JOB#: [id number] / [id number]
[2019-09-15 06:11] VITALS: BP 113/72
[2019-09-15] MEDS: metFORMIN 500 MG TABLET PO SCH ×2 (08:27→16:11)
[2019-09-15] MEDS: ASPIRIN ENTERIC COATED 81 MG TABLET.DR. PO SCH (08:27)
[2019-09-15] MEDS: POTASSIUM CHLORIDE 20 MEQ TABLET.ER. PO SCH ×2 (08:28→20:43)
[2019-09-15] MEDS: DULoxetine HCL 30 MG CAPSULE.DR PO SCH (08:28)
[2019-09-15] MEDS: DULoxetine HCL 60 MG CAPSULE.DR PO SCH (08:28)
[2019-09-15] MEDS: NITROFURANTOIN MONOHYD/M-CRYST 100 MG CAPSULE. PO SCH ×2 (08:29→20:43)
[2019-09-15] MEDS: CYANOCOBALAMIN (VITAMIN B-12) 1,000 MCG TABLET. PO SCH (08:29)
[2019-09-15] MEDS: METOPROLOL TART IMMED RELEASE 25 MG TABLET PO SCH ×2 (08:29→20:43)
[2019-09-15] MEDS: POLYETHYLENE GLYCOL 3350 17 GM PACKET. PO SCH (08:29)
[2019-09-15] MEDS: risperiDONE 0.5 MG TABLET. PO SCH ×2 (08:29→16:11)
[2019-09-15] MEDS: ACETAMINOPHEN 325 MG TABLET PO PRN (12:51)
[2019-09-15] MEDS: DICLOFENAC SODIUM 1% TOPICAL GEL 100GM TUBE. TP PRN (12:55)
[2019-09-15 16:31] VITALS: BP 106/69
[2019-09-15] MEDS: traMADol 50 MG TABLET PO PRN (18:02)
--- NOTE | 2019-09-15 19:57 | PDOC ---
Exam Note: Lance Note: Please also refer to the separate dictated note~for this date of service dictated separately.~Patient seen individually. Discussed the patient with Nursing staff reviewed the chart.~Reviewed interim history and current functioning. Reviewed vital signs,~Labs/ Radiology~and current medications noted below. Continue current treatment with the changes noted in the dictated addendum note Assessment: Vital Signs/I&O: Vital Signs Date Time Temp Pulse Resp B/P (MAP) Pulse Ox O2 Delivery O2 Flow Rate FiO2 09/15/19 18:02 99 09/15/19 16:31 97.4 77 18 106/69 (81) 09/13/19 05:48 Room Air I & O 0 09/14/19 09/14/19 09/15/19 15:00 23:00 07:00 Intake Total 240 ml 360 ml Balance 240 ml 360 ml Labs: Laboratory Tests Test 09/15/19 07:45 Glucose (Fingerstick) 74 mg/dL (70-99) Current Medications: Meds: Current Medications Medications (Trade) Dose Ordered Sig/Carson Route PRN Reason Start Time Stop Time Status Last Admin Dose Admin [place] Carbonate 300 mg QHS PO 09/14/19 21:00 09/14/19 20:21 Tramadol HCl (Ultram) 50 mg PRN Q6HRS PRN PO PAIN 09/15/19 17:15 09/15/19 18:02 I have reviewed the current psychotropics carefully including drug interactions. Risk benefit ratio favors no change other than as noted in my dictated progress note. Diagnosis: Problems: (1) Schizoaffective disorder, bipolar type (2) UTI (urinary tract infection) (3) Suicidal ideation (4) Anxiety disorder (5) Impulse control disorder (6) Schizoaffective disorder, chronic condition with acute exacerbation SHYANN HEBERT MD Sep 15, 2019 19:57
[2019-09-15] MEDS: FLUTICASONE 50MCG/NASAL SPRAY 16GM BOTTLE. NS SCH (20:42)
[2019-09-15] MEDS: ATORVASTATIN CALCIUM 20 MG TABLET PO SCH (20:43)
[2019-09-15] MEDS: LITHIUM CARBONATE 300 MG TABLET PO SCH (20:43)
[2019-09-15] MEDS: risperiDONE 1 MG TABLET. PO SCH (20:43)
[2019-09-15] MEDS: MELATONIN 3 MG TABLET PO SCH (20:44)
[2019-09-15] MEDS: traZODone 100 MG TABLET. PO SCH (20:44)
[2019-09-15] MEDS: METHYL SALICYLATE/MENTHOL TOPICAL OINTMENT 57GM TUBE. TP SCH (21:00)
--- NOTE | 2019-09-16 02:05 | PN ---
DATE: 09/14/2019 PSYCHIATRIC PROGRESS NOTE This late entry 09/14/2019 covers elements not covered in my initial note. SUBJECTIVE: I met with the patient in the evening. Per SONIYA Tong, the patient slept 4-1/4 hours previous night. She has been tired, irritable in the morning, then tearful, agitated, putting herself on the floor twice, had to be in the West hallway to remove from stimuli, laid on the mattress in the quiet room, tearful, continues to have significant mood vacillations. We will check with the pharmacy staff consultation, no contraindication for lithium or Tegretol. REVIEW OF SYSTEMS: Ambulation impaired, in wheelchair. No CV, , pulmonary, eye system symptoms on review. She remains quite hyperverbal. MENTAL STATUS EXAM: Reasonably oriented. Speech is coherent, rapid at times. Abstraction fair, computation impaired, language function intact. Mood and affect remains quite labile. LABORATORY DATA: Reviewed. IMPRESSION: Schizoaffective disorder, bipolar type, mixed with psychotic features; anxiety disorder, unspecified. Rest unchanged. PLAN: We will go ahead and start lithium carbonate 300 mg p.o. at bedtime instead of the Tegretol. Check CBC, CMP, lithium level in 3 days. Continue trazodone, Cymbalta has been reduced to 60 mg a day, melatonin 15 mg at bedtime, Risperdal 0.5 mg a.m., 1.5 bedtime. Rest unchanged for now. SHYANN HEBERT MD DR: ARIEL/ayah JOB#: [id number] / [id number]
[2019-09-16 06:04] VITALS: BP 124/77
[2019-09-16] MEDS: CYANOCOBALAMIN (VITAMIN B-12) 1,000 MCG TABLET. PO SCH (08:21)
[2019-09-16] MEDS: ASPIRIN ENTERIC COATED 81 MG TABLET.DR. PO SCH (08:21)
[2019-09-16] MEDS: metFORMIN 500 MG TABLET PO SCH ×2 (08:21→16:32)
[2019-09-16] MEDS: POLYETHYLENE GLYCOL 3350 17 GM PACKET. PO SCH (08:21)
[2019-09-16] MEDS: DULoxetine HCL 60 MG CAPSULE.DR PO SCH (08:22)
[2019-09-16] MEDS: POTASSIUM CHLORIDE 20 MEQ TABLET.ER. PO SCH ×2 (08:22→20:45)
[2019-09-16] MEDS: traMADol 50 MG TABLET PO PRN ×2 (08:22→16:31)
[2019-09-16] MEDS: NITROFURANTOIN MONOHYD/M-CRYST 100 MG CAPSULE. PO SCH ×2 (08:22→20:46)
[2019-09-16] MEDS: risperiDONE 0.5 MG TABLET. PO SCH ×2 (08:22→16:31)
[2019-09-16] MEDS: METOPROLOL TART IMMED RELEASE 25 MG TABLET PO SCH ×2 (08:23→20:45)
[2019-09-16] MEDS: ACETAMINOPHEN 325 MG TABLET PO PRN (12:27)
[2019-09-16 16:06] VITALS: BP 108/68
--- NOTE | 2019-09-16 20:23 | PDOC ---
Exam Note: Lance Note: Please also refer to the separate dictated note~for this date of service dictated separately.~Patient seen individually. Discussed the patient with Nursing staff reviewed the chart.~Reviewed interim history and current functioning. Reviewed vital signs,~Labs/ Radiology~and current medications noted below. Continue current treatment with the changes noted in the dictated addendum note Assessment: Vital Signs/I&O: Vital Signs Date Time Temp Pulse Resp B/P (MAP) Pulse Ox O2 Delivery O2 Flow Rate FiO2 09/16/19 17:36 99 09/16/19 16:06 98.0 68 16 108/68 (81) 09/15/19 21:16 Room Air I & O 0 09/15/19 09/15/19 09/16/19 15:00 23:00 07:00 Intake Total 1080 ml 600 ml Balance 1080 ml 600 ml Labs: Laboratory Tests Test 09/16/19 07:50 Glucose (Fingerstick) 80 mg/dL (70-99) Current Medications: Meds: Current Medications Medications (Trade) Dose Ordered Sig/Carson Route PRN Reason Start Time Stop Time Status Last Admin Dose Admin Duloxetine HCl (Cymbalta) 60 mg DAILY PO 09/16/19 09:00 09/16/19 08:22 I have reviewed the current psychotropics carefully including drug interactions. Risk benefit ratio favors no change other than as noted in my dictated progress note. Diagnosis: Problems: (1) Suicidal ideation (2) Anxiety disorder (3) Impulse control disorder (4) Schizoaffective disorder, chronic condition with acute exacerbation (5) Schizoaffective disorder, bipolar type SHYANN HEBERT MD Sep 16, 2019 20:23
[2019-09-16] MEDS: FLUTICASONE 50MCG/NASAL SPRAY 16GM BOTTLE. NS SCH (20:45)
[2019-09-16] MEDS: traZODone 100 MG TABLET. PO SCH (20:45)
[2019-09-16] MEDS: METHYL SALICYLATE/MENTHOL TOPICAL OINTMENT 57GM TUBE. TP SCH (20:46)
[2019-09-16] MEDS: ATORVASTATIN CALCIUM 20 MG TABLET PO SCH (20:46)
[2019-09-16] MEDS: MELATONIN 3 MG TABLET PO SCH (20:46)
[2019-09-16] MEDS: risperiDONE 1 MG TABLET. PO SCH (20:46)
[2019-09-16] MEDS: LITHIUM CARBONATE 300 MG TABLET PO SCH (20:46)
[2019-09-17] MEDS: traMADol 50 MG TABLET PO PRN ×2 (03:56→19:59)
[2019-09-17 06:11] VITALS: BP 110/68
[2019-09-17 06:36] LABS: BASO % 0 % (0-3); EOS % 0 % (0-3); HEMATOCRIT 34.1 % (36.0-47.0); LYMPH # 1.6 x10^3/uL (1.0-4.8); LYMPH % 24 % (24-48); MEAN CORPUSCULAR HEMOGLOBIN 29 pg (25-35); MEAN CORPUSCULAR HGB CONC 32 g/dL (31-37); MEAN CORPUSCULAR VOLUME 89 fL (79-100); MONO # 0.9 x10^3/uL (0.0-1.1); MONO % 14 % (0-9); NEUT # 4.2 x10^3uL (1.8-7.7); NEUT % 62 % (31-73); PLATELET COUNT 301 x10^3/uL (140-400); RED BLOOD COUNT 3.82 x10^6/uL (3.50-5.40); RED CELL DISTRIBUTION WIDTH 15.3 % (11.5-14.5); WHITE BLOOD COUNT 6.8 x10^3/uL (4.0-11.0)
[2019-09-17 06:43] LABS: ALBUMIN 3.4 g/dL (3.4-5.0); ALBUMIN/GLOBULIN RATIO 1.1 (1.0-1.7); CALCIUM 8.9 mg/dL (8.5-10.1); CREATININE 0.6 mg/dL (0.6-1.0); GFR 99.4; POTASSIUM 4.3 mmol/L (3.5-5.1); TOTAL BILIRUBIN 0.6 mg/dL (0.2-1.0); TOTAL PROTEIN 6.6 g/dL (6.4-8.2)
[2019-09-17] MEDS: ASPIRIN ENTERIC COATED 81 MG TABLET.DR. PO SCH (08:28)
[2019-09-17] MEDS: METOPROLOL TART IMMED RELEASE 25 MG TABLET PO SCH ×2 (08:28→19:58)
[2019-09-17] MEDS: DULoxetine HCL 60 MG CAPSULE.DR PO SCH (08:29)
[2019-09-17] MEDS: POLYETHYLENE GLYCOL 3350 17 GM PACKET. PO SCH (08:29)
[2019-09-17] MEDS: CYANOCOBALAMIN (VITAMIN B-12) 1,000 MCG TABLET. PO SCH (08:29)
[2019-09-17] MEDS: NITROFURANTOIN MONOHYD/M-CRYST 100 MG CAPSULE. PO SCH ×2 (08:29→19:59)
[2019-09-17] MEDS: FLUTICASONE 50MCG/NASAL SPRAY 16GM BOTTLE. NS SCH (08:29)
[2019-09-17] MEDS: risperiDONE 0.5 MG TABLET. PO SCH ×2 (08:29→16:00)
[2019-09-17] MEDS: POTASSIUM CHLORIDE 20 MEQ TABLET.ER. PO SCH ×2 (08:29→20:00)
[2019-09-17] MEDS: metFORMIN 500 MG TABLET PO SCH ×2 (08:29→17:00)
[2019-09-17] MEDS: fentaNYL 12MCG/HR 1 PATCH PATCH TD SCH (14:00)
[2019-09-17] MEDS: DICLOFENAC SODIUM 1% TOPICAL GEL 100GM TUBE. TP PRN ×2 (15:30→20:01)
[2019-09-17 16:24] VITALS: BP 109/72
[2019-09-17] MEDS: MELATONIN 3 MG TABLET PO SCH (19:58)
[2019-09-17] MEDS: LITHIUM CARBONATE 300 MG TABLET PO SCH (19:58)
[2019-09-17] MEDS: traZODone 100 MG TABLET. PO SCH (19:59)
[2019-09-17] MEDS: risperiDONE 1 MG TABLET. PO SCH (19:59)
[2019-09-17] MEDS: ATORVASTATIN CALCIUM 20 MG TABLET PO SCH (20:00)
[2019-09-17] MEDS: METHYL SALICYLATE/MENTHOL TOPICAL OINTMENT 57GM TUBE. TP SCH (20:00)
--- NOTE | 2019-09-17 20:37 | PDOC ---
Exam Note: Lance Note: Please also refer to the separate dictated note~for this date of service dictated separately.~Patient seen individually. Discussed the patient with Nursing staff reviewed the chart.~Reviewed interim history and current functioning. Reviewed vital signs,~Labs/ Radiology~and current medications noted below. Continue current treatment with the changes noted in the dictated addendum note Assessment: Vital Signs/I&O: Vital Signs Date Time Temp Pulse Resp B/P (MAP) Pulse Ox O2 Delivery O2 Flow Rate FiO2 09/17/19 19:59 18 100 Room Air 09/17/19 19:58 87 109/72 09/17/19 16:24 98.0 I & O 09/16/19 09/16/19 09/17/19 15:00 23:00 07:00 Intake Total 600 ml 600 ml Balance 600 ml 600 ml Labs: Laboratory Tests Test 09/17/19 06:13 09/17/19 07:09 White Blood Count 6.8 x10^3/uL (4.0-11.0) Red Blood Count 3.82 x10^6/uL (3.50-5.40) Hemoglobin 11.0 g/dL (12.0-15.5) L Hematocrit 34.1 % (36.0-47.0) L Mean Corpuscular Volume 89 fL (79-100) Mean Corpuscular Hemoglobin 29 pg (25-35) Mean Corpuscular Hemoglobin Concent 32 g/dL (31-37) Red Cell Distribution Width 15.3 % (11.5-14.5) H Platelet Count 301 x10^3/uL (140-400) Neutrophils (%) (Auto) 62 % (31-73) Lymphocytes (%) (Auto) 24 % (24-48) Monocytes (%) (Auto) 14 % (0-9) H Eosinophils (%) (Auto) 0 % (0-3) Basophils (%) (Auto) 0 % (0-3) Neutrophils # (Auto) 4.2 x10^3uL (1.8-7.7) Lymphocytes # (Auto) 1.6 x10^3/uL (1.0-4.8) Monocytes # (Auto) 0.9 x10^3/uL (0.0-1.1) Eosinophils # (Auto) 0.0 x10^3/uL (0.0-0.7) Basophils # (Auto) 0.0 x10^3/uL (0.0-0.2) Sodium Level 139 mmol/L (136-145) Potassium Level 4.3 mmol/L (3.5-5.1) Chloride Level 103 mmol/L (98-107) Carbon Dioxide Level 29 mmol/L (21-32) Anion Gap 7 (6-14) Blood Urea Nitrogen 9 mg/dL (7-20) Creatinine 0.6 mg/dL (0.6-1.0) Estimated GFR (Cockcroft-Gault) 99.4 BUN/Creatinine Ratio 15 (6-20) Glucose Level 80 mg/dL (70-99) Calcium Level 8.9 mg/dL (8.5-10.1) Total Bilirubin 0.6 mg/dL (0.2-1.0) Aspartate Amino Transferase (AST) 12 U/L (15-37) L Alanine Aminotransferase (ALT) 13 U/L (14-59) L Alkaline Phosphatase 90 U/L (46-116) Total Protein 6.6 g/dL (6.4-8.2) Albumin 3.4 g/dL (3.4-5.0) Albumin/Globulin Ratio 1.1 (1.0-1.7) [place] Level 0.2 mmol/L (0.6-1.2) L [place] Last Dose Date 09/16/19 [place] Last Dose Time 2100 Glucose (Fingerstick) 83 mg/dL (70-99) Current Medications: Meds: Current Medications Medications (Trade) Dose Ordered Sig/Carson Route PRN Reason Start Time Stop Time Status Last Admin Dose Admin Fentanyl (Duragesic 12mcg/ Hr) 1 patch Q3DAYS TD 09/17/19 14:00 09/17/19 14:00 [place] Carbonate 300 mg BID PO 09/17/19 21:00 09/17/19 19:58 I have reviewed the current psychotropics carefully including drug interactions. Risk benefit ratio favors no change other than as noted in my dictated progress note. Diagnosis: Problems: (1) Schizoaffective disorder, bipolar type (2) Suicidal ideation (3) Anxiety disorder (4) Impulse control disorder (5) Schizoaffective disorder, chronic condition with acute exacerbation (6) Schizophrenia, disorganized, subchronic with acute exacerbation SHYANN HEBERT MD Sep 17, 2019 20:37
--- NOTE | 2019-09-18 02:51 | PN ---
DATE: 09/16/2019 PSYCHIATRIC PROGRESS NOTE This late entry 09/16/2019 covers the elements not covered in my initial note. SUBJECTIVE: I met with the patient in the evening and staffed at a treatment team meeting with the entire team in the morning and the patient's sister, Jesus, attended this conference. We discussed starting the patient on lithium for her diagnosis of bipolar disorder, which the sister was aware of, but she was unaware of the past allergies and past psychotropic medication treatments. Appetite is 100%. REVIEW OF SYSTEMS: Ambulation impaired, in wheelchair. No CV, , pulmonary, eye system symptoms on review. MENTAL STATUS EXAM: Reasonably oriented. Speech is coherent, has some latency. Abstraction fair, computation impaired, language function intact, attention span short. Mood and affect somewhat anxious, labile, but lesser than before. LABORATORY DATA: Reviewed. IMPRESSION: Bipolar disorder, mixed with psychotic features versus schizoaffective disorder, bipolar type, mixed with psychotic features. Rest unchanged. PLAN: We had a lengthy education session with the sister discussing the patient's diagnosis, how antidepressants could make her mood swings worse, mood stabilizers are integrative part of treatment with atypical antipsychotics and the role in her medications and lithium's role in her mood stabilization. Sister seemed to understand and asked questions. PLAN: Continue current psychotropics. Adjust the lithium post next set of labs and lithium level, duloxetine has been reduced. Maintain Risperdal, trazodone, melatonin for now. MAN Bradly HEBERT MD DR: ARIEL/ayah JOB#: [id number] / [id number]
[2019-09-18 06:01] VITALS: BP 109/66
[2019-09-18] MEDS: NITROFURANTOIN MONOHYD/M-CRYST 100 MG CAPSULE. PO SCH ×2 (07:59→20:36)
[2019-09-18] MEDS: POTASSIUM CHLORIDE 20 MEQ TABLET.ER. PO SCH ×2 (07:59→20:36)
[2019-09-18] MEDS: CYANOCOBALAMIN (VITAMIN B-12) 1,000 MCG TABLET. PO SCH (07:59)
[2019-09-18] MEDS: risperiDONE 0.5 MG TABLET. PO SCH ×2 (08:00→16:00)
[2019-09-18] MEDS: ASPIRIN ENTERIC COATED 81 MG TABLET.DR. PO SCH (08:00)
[2019-09-18] MEDS: DULoxetine HCL 60 MG CAPSULE.DR PO SCH (08:00)
[2019-09-18] MEDS: LITHIUM CARBONATE 300 MG TABLET PO SCH ×2 (08:00→20:36)
[2019-09-18] MEDS: metFORMIN 500 MG TABLET PO SCH ×2 (08:00→17:00)
[2019-09-18] MEDS: METOPROLOL TART IMMED RELEASE 25 MG TABLET PO SCH ×2 (08:01→20:36)
[2019-09-18] MEDS: FLUTICASONE 50MCG/NASAL SPRAY 16GM BOTTLE. NS SCH (08:01)
[2019-09-18] MEDS: POLYETHYLENE GLYCOL 3350 17 GM PACKET. PO SCH (08:01)
[2019-09-18 15:59] VITALS: BP 101/66
[2019-09-18] MEDS: traZODone 100 MG TABLET. PO SCH (20:36)
[2019-09-18] MEDS: MELATONIN 3 MG TABLET PO SCH (20:36)
[2019-09-18] MEDS: risperiDONE 1 MG TABLET. PO SCH (20:36)
[2019-09-18] MEDS: ATORVASTATIN CALCIUM 20 MG TABLET PO SCH (20:37)
--- NOTE | 2019-09-18 20:41 | PDOC ---
Exam Note: Lance Note: Please also refer to the separate dictated note~for this date of service dictated separately.~Patient seen individually. Discussed the patient with Nursing staff reviewed the chart.~Reviewed interim history and current functioning. Reviewed vital signs,~Labs/ Radiology~and current medications noted below. Continue current treatment with the changes noted in the dictated addendum note Assessment: Vital Signs/I&O: Vital Signs Date Time Temp Pulse Resp B/P (MAP) Pulse Ox O2 Delivery O2 Flow Rate FiO2 09/18/19 20:36 72 101/66 09/18/19 15:59 98.4 14 97 09/18/19 06:01 Room Air I & O 09/17/19 09/17/19 09/18/19 15:00 23:00 07:00 Intake Total 480 ml 360 ml Balance 480 ml 360 ml Labs: Laboratory Tests Test 09/18/19 07:48 Glucose (Fingerstick) 73 mg/dL (70-99) Current Medications: Meds: Current Medications Medications (Trade) Dose Ordered Sig/[place] Route PRN Reason Start Time Stop Time Status Last Admin Dose Admin [place] Carbonate 300 mg BID PO 09/17/19 21:00 09/18/19 20:36 I have reviewed the current psychotropics carefully including drug interactions. Risk benefit ratio favors no change other than as noted in my dictated progress note. Diagnosis: Problems: (1) Schizoaffective disorder, bipolar type (2) Suicidal ideation (3) Anxiety disorder (4) Impulse control disorder (5) Schizoaffective disorder, chronic condition with acute exacerbation SHYANN HEBERT MD Sep 18, 2019 20:41
[2019-09-18] MEDS: POLYVINYL ALCOHOL 1.4% OPHTH SOLUTION 15ML BOTTLE. OU PRN (20:44)
[2019-09-18] MEDS: METHYL SALICYLATE/MENTHOL TOPICAL OINTMENT 57GM TUBE. TP SCH (20:44)
[2019-09-18] MEDS: traMADol 50 MG TABLET PO PRN (20:45)
[2019-09-19 05:49] VITALS: BP 94/63
[2019-09-19] MEDS: traMADol 50 MG TABLET PO PRN ×3 (06:01→20:34)
[2019-09-19] MEDS: FLUTICASONE 50MCG/NASAL SPRAY 16GM BOTTLE. NS SCH (07:48)
[2019-09-19] MEDS: POTASSIUM CHLORIDE 20 MEQ TABLET.ER. PO SCH ×2 (07:49→20:34)
[2019-09-19] MEDS: CYANOCOBALAMIN (VITAMIN B-12) 1,000 MCG TABLET. PO SCH (07:49)
[2019-09-19] MEDS: metFORMIN 500 MG TABLET PO SCH ×2 (07:49→17:00)
[2019-09-19] MEDS: NITROFURANTOIN MONOHYD/M-CRYST 100 MG CAPSULE. PO SCH (07:49)
[2019-09-19] MEDS: LITHIUM CARBONATE 300 MG TABLET PO SCH ×2 (07:50→20:34)
[2019-09-19] MEDS: METOPROLOL TART IMMED RELEASE 25 MG TABLET PO SCH ×2 (07:50→20:34)
[2019-09-19] MEDS: risperiDONE 0.5 MG TABLET. PO SCH ×2 (07:50→16:00)
[2019-09-19] MEDS: DULoxetine HCL 60 MG CAPSULE.DR PO SCH (07:50)
[2019-09-19] MEDS: POLYETHYLENE GLYCOL 3350 17 GM PACKET. PO SCH (07:50)
[2019-09-19] MEDS: ASPIRIN ENTERIC COATED 81 MG TABLET.DR. PO SCH (07:50)
[2019-09-19 15:39] VITALS: BP 103/68
--- NOTE | 2019-09-19 19:58 | PDOC ---
Exam Note: Lance Note: Please also refer to the separate dictated note~for this date of service dictated separately.~Patient seen individually. Discussed the patient with Nursing staff reviewed the chart.~Reviewed interim history and current functioning. Reviewed vital signs,~Labs/ Radiology~and current medications noted below. Continue current treatment with the changes noted in the dictated addendum note Assessment: Vital Signs/I&O: Vital Signs Date Time Temp Pulse Resp B/P (MAP) Pulse Ox O2 Delivery O2 Flow Rate FiO2 09/19/19 15:39 98.1 78 16 103/68 (80) 97 09/18/19 06:01 Room Air I & O 09/18/19 09/18/19 09/19/19 15:00 23:00 07:00 Intake Total 600 ml 360 ml Balance 600 ml 360 ml Labs: Laboratory Tests Test 09/19/19 07:27 Glucose (Fingerstick) 80 mg/dL (70-99) Current Medications: I have reviewed the current psychotropics carefully including drug interactions. Risk benefit ratio favors no change other than as noted in my dictated progress note. Diagnosis: Problems: (1) Suicidal ideation (2) Anxiety disorder (3) Impulse control disorder (4) Schizoaffective disorder, chronic condition with acute exacerbation (5) Schizoaffective disorder, bipolar type SHYANN HEBERT MD Sep 19, 2019 19:58
[2019-09-19] MEDS: POLYVINYL ALCOHOL 1.4% OPHTH SOLUTION 15ML BOTTLE. OU PRN (20:33)
[2019-09-19] MEDS: risperiDONE 1 MG TABLET. PO SCH (20:33)
[2019-09-19] MEDS: METHYL SALICYLATE/MENTHOL TOPICAL OINTMENT 57GM TUBE. TP SCH (20:33)
[2019-09-19] MEDS: MELATONIN 3 MG TABLET PO SCH (20:34)
[2019-09-19] MEDS: ATORVASTATIN CALCIUM 20 MG TABLET PO SCH (20:34)
[2019-09-19] MEDS: traZODone 100 MG TABLET. PO SCH (20:34)
--- NOTE | 2019-09-20 03:16 | PN ---
DATE: 09/17/2019 PSYCHIATRIC PROGRESS NOTE This late entry, 09/17/2019, covers elements not covered in my initial note. SUBJECTIVE: I met with the patient evening of 09/17/2019. Per SONIYA Paniagua, the patient slept 5-3/4 hours previous night. She has been somewhat medication seeking, wanting her fentanyl patch. [place] is 0.2, on lithium carbonate 300 mg at bedtime. Overall, she appears calmer. REVIEW OF SYSTEMS: Impaired ambulation in wheelchair. No CV, , pulmonary, eye system symptoms on review. She was agitated at lunch, talked paranoid, felt someone was being raped and implicating a nursing staff for this. REVIEW OF SYSTEMS: No CV, , pulmonary, eye system symptoms on review. Impaired ambulation. MENTAL STATUS EXAM: Oriented to herself. Insight limited, judgment marginal, language function intact, attention span short. Mood and affect remain somewhat intermittently labile. LABORATORY DATA: Reviewed. PLAN: Increase lithium carbonate to 300 mg twice a day. Check CBC, CMP, lithium level in 3 days. Maintain Risperdal, trazodone, Cymbalta, melatonin for now. We will reduce the melatonin ____. Dictation Ends Here SHYANN HEBERT MD DR: ARIEL/ayah JOB#: [id number] / [id number]
[2019-09-20 06:10] VITALS: BP 111/69
[2019-09-20] MEDS: traMADol 50 MG TABLET PO PRN ×2 (06:15→13:23)
[2019-09-20 07:26] LABS: BASO % 0 % (0-3); EOS % 0 % (0-3); HEMATOCRIT 35.3 % (36.0-47.0); HEMOGLOBIN 11.6 g/dL (12.0-15.5); LYMPH # 1.7 x10^3/uL (1.0-4.8); LYMPH % 22 % (24-48); MEAN CORPUSCULAR HEMOGLOBIN 29 pg (25-35); MEAN CORPUSCULAR HGB CONC 33 g/dL (31-37); MEAN CORPUSCULAR VOLUME 89 fL (79-100); MONO # 0.9 x10^3/uL (0.0-1.1); MONO % 12 % (0-9); NEUT # 5.1 x10^3uL (1.8-7.7); NEUT % 66 % (31-73); PLATELET COUNT 310 x10^3/uL (140-400); RED BLOOD COUNT 3.97 x10^6/uL (3.50-5.40); RED CELL DISTRIBUTION WIDTH 15.3 % (11.5-14.5); WHITE BLOOD COUNT 7.7 x10^3/uL (4.0-11.0)
[2019-09-20 07:41] LABS: ALBUMIN 3.3 g/dL (3.4-5.0); CALCIUM 8.7 mg/dL (8.5-10.1); CREATININE 0.5 mg/dL (0.6-1.0); GFR 122.7; POTASSIUM 4.2 mmol/L (3.5-5.1); TOTAL BILIRUBIN 0.6 mg/dL (0.2-1.0); TOTAL PROTEIN 6.7 g/dL (6.4-8.2)
[2019-09-20] MEDS: risperiDONE 0.5 MG TABLET. PO SCH ×2 (08:58→17:13)
[2019-09-20] MEDS: POLYETHYLENE GLYCOL 3350 17 GM PACKET. PO SCH (08:58)
[2019-09-20] MEDS: ASPIRIN ENTERIC COATED 81 MG TABLET.DR. PO SCH (08:58)
[2019-09-20] MEDS: metFORMIN 500 MG TABLET PO SCH ×2 (08:58→17:13)
[2019-09-20] MEDS: POTASSIUM CHLORIDE 20 MEQ TABLET.ER. PO SCH ×2 (08:59→20:01)
[2019-09-20] MEDS: LITHIUM CARBONATE 300 MG TABLET PO SCH ×2 (08:59→20:02)
[2019-09-20] MEDS: DULoxetine HCL 60 MG CAPSULE.DR PO SCH (08:59)
[2019-09-20] MEDS: fentaNYL 12MCG/HR 1 PATCH PATCH TD SCH (08:59)
[2019-09-20] MEDS: METOPROLOL TART IMMED RELEASE 25 MG TABLET PO SCH ×2 (08:59→20:03)
[2019-09-20] MEDS: DICLOFENAC SODIUM 1% TOPICAL GEL 100GM TUBE. TP PRN (08:59)
[2019-09-20] MEDS: CYANOCOBALAMIN (VITAMIN B-12) 1,000 MCG TABLET. PO SCH (08:59)
[2019-09-20 15:53] VITALS: BP 94/61
--- NOTE | 2019-09-20 18:22 | PN ---
DATE: 09/18/2019 This late entry 09/18/2019 covers elements not covered in my initial note. SUBJECTIVE: I met with the patient in the evening. The patient is doing a little better, slept 7-1/4 hours previous night. [place] level is 0.2, more cooperative, less manic and grandiose. REVIEW OF SYSTEMS: Ambulation impaired, in wheelchair. No CV, , pulmonary, eye system symptoms on review. MENTAL STATUS EXAM: Reasonably oriented. Speech is coherent, abstraction fair, computation impaired, language function intact. Mood and affect less. Grandiose improved. LABORATORY DATA: Reviewed. IMPRESSION: Unchanged from initial note. PLAN: [place] level is 0.2 on 300 mg at bedtime. We will increase to 300 mg twice a day. Check CBC, CMP, lithium level in 3 days. Rest unchanged for now. MAN Bradly HEBERT MD DR: ARIEL/ayah JOB#: [id number] / [id number]
--- NOTE | 2019-09-20 18:26 | PN ---
DATE: 09/19/2019 PSYCHIATRIC PROGRESS NOTE This late entry 09/19/2019, covers elements not covered in my initial note. SUBJECTIVE: I met with the patient in the evening. The patient slept 7 hours previous night. She is pleasant previous night, somewhat somatically preoccupied. Her sister visited twice and we talked at length about this when I met with her in the evening. She is quite pleasant, cooperative, much less hypomanic. REVIEW OF SYSTEMS: Ambulation impaired, in wheelchair. No CV, , pulmonary, eye system symptoms on review. MENTAL STATUS EXAM: Reasonably oriented. Speech coherent, less pressured. Abstraction fair, computation impaired, language function intact, attention span short. Mood and affect less labile and grandiose. LABORATORY DATA: Reviewed. IMPRESSION: Unchanged from initial note. PLAN: [place] has been increased to 300 b.i.d. Check labs level on 09/20/2019. Maintain Risperdal. Cymbalta has been dropped to 60 mg a day. We may need to drop it down further, but we will see how she does with increased lithium. Maintain trazodone and melatonin. MAN Bradly HEBERT MD DR: ARIEL/ayah JOB#: [id number] / [id number]
--- NOTE | 2019-09-20 19:52 | PDOC ---
Exam Note: Lance Note: Please also refer to the separate dictated note~for this date of service dictated separately.~Patient seen individually. Discussed the patient with Nursing staff reviewed the chart.~Reviewed interim history and current functioning. Reviewed vital signs,~Labs/ Radiology~and current medications noted below. Continue current treatment with the changes noted in the dictated addendum note Assessment: Vital Signs/I&O: Vital Signs Date Time Temp Pulse Resp B/P (MAP) Pulse Ox O2 Delivery O2 Flow Rate FiO2 09/20/19 15:53 98.0 66 16 94/61 (72) 99 09/20/19 06:10 Room Air I & O 09/19/19 09/19/19 09/20/19 14:59 22:59 06:59 Intake Total 840 ml 600 ml Balance 840 ml 600 ml Labs: Laboratory Tests Test 09/20/19 07:00 White Blood Count 7.7 x10^3/uL (4.0-11.0) Red Blood Count 3.97 x10^6/uL (3.50-5.40) Hemoglobin 11.6 g/dL (12.0-15.5) L Hematocrit 35.3 % (36.0-47.0) L Mean Corpuscular Volume 89 fL (79-100) Mean Corpuscular Hemoglobin 29 pg (25-35) Mean Corpuscular Hemoglobin Concent 33 g/dL (31-37) Red Cell Distribution Width 15.3 % (11.5-14.5) H Platelet Count 310 x10^3/uL (140-400) Neutrophils (%) (Auto) 66 % (31-73) Lymphocytes (%) (Auto) 22 % (24-48) L Monocytes (%) (Auto) 12 % (0-9) H Eosinophils (%) (Auto) 0 % (0-3) Basophils (%) (Auto) 0 % (0-3) Neutrophils # (Auto) 5.1 x10^3uL (1.8-7.7) Lymphocytes # (Auto) 1.7 x10^3/uL (1.0-4.8) Monocytes # (Auto) 0.9 x10^3/uL (0.0-1.1) Eosinophils # (Auto) 0.0 x10^3/uL (0.0-0.7) Basophils # (Auto) 0.0 x10^3/uL (0.0-0.2) Sodium Level 140 mmol/L (136-145) Potassium Level 4.2 mmol/L (3.5-5.1) Chloride Level 104 mmol/L (98-107) Carbon Dioxide Level 29 mmol/L (21-32) Anion Gap 7 (6-14) Blood Urea Nitrogen 8 mg/dL (7-20) Creatinine 0.5 mg/dL (0.6-1.0) L Estimated GFR (Cockcroft-Gault) 122.7 BUN/Creatinine Ratio 16 (6-20) Glucose Level 79 mg/dL (70-99) Calcium Level 8.7 mg/dL (8.5-10.1) Total Bilirubin 0.6 mg/dL (0.2-1.0) Aspartate Amino Transferase (AST) 13 U/L (15-37) L Alanine Aminotransferase (ALT) 13 U/L (14-59) L Alkaline Phosphatase 100 U/L (46-116) Total Protein 6.7 g/dL (6.4-8.2) Albumin 3.3 g/dL (3.4-5.0) L Albumin/Globulin Ratio 1.0 (1.0-1.7) [place] Level 0.6 mmol/L (0.6-1.2) [place] Last Dose Date 09/19/19 [place] Last Dose Time 2100 Current Medications: I have reviewed the current psychotropics carefully including drug interactions. Risk benefit ratio favors no change other than as noted in my dictated progress note. Diagnosis: Problems: (1) Schizoaffective disorder, bipolar type (2) Fall (3) Suicidal ideation (4) Anxiety disorder (5) Impulse control disorder (6) Schizoaffective disorder, chronic condition with acute exacerbation SHYANN HEBERT MD Sep 20, 2019 19:52
[2019-09-20] MEDS: FLUTICASONE 50MCG/NASAL SPRAY 16GM BOTTLE. NS SCH (20:01)
[2019-09-20] MEDS: traZODone 100 MG TABLET. PO SCH (20:01)
[2019-09-20] MEDS: MELATONIN 3 MG TABLET PO SCH (20:02)
[2019-09-20] MEDS: risperiDONE 1 MG TABLET. PO SCH (20:02)
[2019-09-20] MEDS: ATORVASTATIN CALCIUM 20 MG TABLET PO SCH (20:03)
[2019-09-20] MEDS: METHYL SALICYLATE/MENTHOL TOPICAL OINTMENT 57GM TUBE. TP SCH (20:06)
[2019-09-21 06:22] VITALS: BP 111/69
[2019-09-21] MEDS: DULoxetine HCL 60 MG CAPSULE.DR PO SCH (07:49)
[2019-09-21] MEDS: POLYETHYLENE GLYCOL 3350 17 GM PACKET. PO SCH (07:49)
[2019-09-21] MEDS: POTASSIUM CHLORIDE 20 MEQ TABLET.ER. PO SCH ×2 (07:49→20:00)
[2019-09-21] MEDS: CYANOCOBALAMIN (VITAMIN B-12) 1,000 MCG TABLET. PO SCH (07:50)
[2019-09-21] MEDS: metFORMIN 500 MG TABLET PO SCH ×2 (07:50→16:36)
[2019-09-21] MEDS: ASPIRIN ENTERIC COATED 81 MG TABLET.DR. PO SCH (07:50)
[2019-09-21] MEDS: METOPROLOL TART IMMED RELEASE 25 MG TABLET PO SCH ×2 (07:50→20:00)
[2019-09-21] MEDS: traMADol 50 MG TABLET PO PRN ×2 (07:50→16:37)
[2019-09-21] MEDS: LITHIUM CARBONATE 300 MG TABLET PO SCH ×2 (07:51→19:59)
[2019-09-21] MEDS: risperiDONE 0.5 MG TABLET. PO SCH ×2 (07:51→16:36)
[2019-09-21] MEDS: DICLOFENAC SODIUM 1% TOPICAL GEL 100GM TUBE. TP PRN ×2 (12:30→19:58)
--- NOTE | 2019-09-21 15:57 | RAD ---
2 views of the right tib-fib without comparison for edema, redness, intermittent pain. FINDINGS: There is no fracture, dislocation, or acute osseous abnormality identified. Severe degenerative changes of the knee joint are present, primarily involving the lateral knee joint which is atypical for standard osteoarthritis. There are also degenerative changes about the ankle. Soft tissue edema is suggested throughout the lower two thirds of the leg. No radiopaque foreign bodies are seen. IMPRESSION: 1. No acute osseous abnormality. 2. Severe degenerative changes about the knee and the ankle. The pattern of arthritis both knees atypical for garden-variety osteoarthritis. Electronically signed by: Skyler Ramos MD (09/21/2019 3:54 PM) [facility]
[2019-09-21 16:19] VITALS: BP 103/66
--- NOTE | 2019-09-21 17:01 | RAD ---
EXAM: Right lower extremity venous Doppler. HISTORY: Right lower extremity pain/swelling. COMPARISON: None. FINDINGS: Grayscale and Doppler analysis of the right lower extremity deep venous system was performed with graded compression and augmentation. The common femoral, greater saphenous, superficial femoral, popliteal and calf veins were assessed. There is no evidence of deep venous thrombosis. IMPRESSION: 1. No evidence of deep venous thrombosis. Electronically signed by: Rafa West MD (09/21/2019 4:58 PM) [place] [id number]
--- NOTE | 2019-09-21 19:54 | PDOC ---
Exam Note: Lance Note: Please also refer to the separate dictated note~for this date of service dictated separately.~Patient seen individually. Discussed the patient with Nursing staff reviewed the chart.~Reviewed interim history and current functioning. Reviewed vital signs,~Labs/ Radiology~and current medications noted below. Continue current treatment with the changes noted in the dictated addendum note Assessment: Vital Signs/I&O: Vital Signs Date Time Temp Pulse Resp B/P (MAP) Pulse Ox O2 Delivery O2 Flow Rate FiO2 09/21/19 16:19 97.9 75 16 103/66 (78) 98 Room Air I & O 09/20/19 09/20/19 09/21/19 15:00 23:00 07:00 Intake Total 480 ml 330 ml 360 ml Balance 480 ml 330 ml 360 ml Labs: Laboratory Tests Test 09/21/19 08:05 Glucose (Fingerstick) 147 mg/dL (70-99) H Current Medications: I have reviewed the current psychotropics carefully including drug interactions. Risk benefit ratio favors no change other than as noted in my dictated progress note. Diagnosis: Problems: (1) Schizoaffective disorder, bipolar type (2) Suicidal ideation (3) Anxiety disorder (4) Impulse control disorder (5) Schizoaffective disorder, chronic condition with acute exacerbation (6) Schizophrenia, disorganized, subchronic with acute exacerbation SHYANN HEBERT MD Sep 21, 2019 19:54
[2019-09-21] MEDS: FLUTICASONE 50MCG/NASAL SPRAY 16GM BOTTLE. NS SCH (19:59)
[2019-09-21] MEDS: ATORVASTATIN CALCIUM 20 MG TABLET PO SCH (19:59)
[2019-09-21] MEDS: risperiDONE 1 MG TABLET. PO SCH (20:00)
[2019-09-21] MEDS: traZODone 100 MG TABLET. PO SCH (20:00)
[2019-09-21] MEDS: MELATONIN 3 MG TABLET PO SCH (20:00)
[2019-09-21] MEDS: POLYVINYL ALCOHOL 1.4% OPHTH SOLUTION 15ML BOTTLE. OU PRN (20:05)
[2019-09-21] MEDS: METHYL SALICYLATE/MENTHOL TOPICAL OINTMENT 57GM TUBE. TP SCH (20:06)
--- NOTE | 2019-09-21 23:43 | PN ---
DATE: 09/20/2019 PSYCHIATRIC PROGRESS NOTE This late entry 09/20/2019 covers the elements not covered in my initial note. SUBJECTIVE: Per Ariana RN, the patient slept 6-3/4 hours previous night. She has been doing better, less anxious, compliant with medications, but often wanting some pain medications. [place] level 0.6. We will repeat lithium on Friday09/22/2019. REVIEW OF SYSTEMS: Ambulation impaired, in wheelchair. No CV, , pulmonary, eye system symptoms on review. MENTAL STATUS EXAM: Oriented reasonably. Speech is coherent, abstraction fair, computation impaired, language function intact, attention span short. Mood and affect is improved, less labile, less grandiose. LABORATORY DATA: Reviewed. IMPRESSION: Bipolar disorder, manic with psychotic features, in partial remission; anxiety disorder, unspecified. Rest unchanged. PLAN: No change from initial note. Continue lithium. Repeat labs. Rest unchanged. MAN Bradly HEBERT MD DR: ARIEL/ayah JOB#: [id number] / [id number]
[2019-09-22] MEDS: DICLOFENAC SODIUM 1% TOPICAL GEL 100GM TUBE. TP PRN ×3 (00:39→20:04)
[2019-09-22 06:34] VITALS: BP 103/59
[2019-09-22] MEDS: CYANOCOBALAMIN (VITAMIN B-12) 1,000 MCG TABLET. PO SCH (08:10)
[2019-09-22] MEDS: POLYETHYLENE GLYCOL 3350 17 GM PACKET. PO SCH (08:10)
[2019-09-22] MEDS: METOPROLOL TART IMMED RELEASE 25 MG TABLET PO SCH ×2 (08:11→21:00)
[2019-09-22] MEDS: ASPIRIN ENTERIC COATED 81 MG TABLET.DR. PO SCH (08:11)
[2019-09-22] MEDS: DULoxetine HCL 60 MG CAPSULE.DR PO SCH (08:11)
[2019-09-22] MEDS: metFORMIN 500 MG TABLET PO SCH ×2 (08:11→17:00)
[2019-09-22] MEDS: POTASSIUM CHLORIDE 20 MEQ TABLET.ER. PO SCH ×2 (08:11→20:05)
[2019-09-22] MEDS: risperiDONE 0.5 MG TABLET. PO SCH ×2 (08:12→15:43)
[2019-09-22] MEDS: LITHIUM CARBONATE 300 MG TABLET PO SCH ×2 (08:12→20:05)
[2019-09-22] MEDS: ACETAMINOPHEN 325 MG TABLET PO PRN (10:50)
[2019-09-22] MEDS: POLYVINYL ALCOHOL 1.4% OPHTH SOLUTION 15ML BOTTLE. OU PRN ×2 (11:23→20:04)
[2019-09-22 15:43] VITALS: BP 105/66
[2019-09-22] MEDS: traMADol 50 MG TABLET PO PRN (15:51)
--- NOTE | 2019-09-22 19:53 | PDOC ---
Exam Note: Lance Note: Please also refer to the separate dictated note~for this date of service dictated separately.~Patient seen individually. Discussed the patient with Nursing staff reviewed the chart.~Reviewed interim history and current functioning. Reviewed vital signs,~Labs/ Radiology~and current medications noted below. Continue current treatment with the changes noted in the dictated addendum note Assessment: Vital Signs/I&O: Vital Signs Date Time Temp Pulse Resp B/P (MAP) Pulse Ox O2 Delivery O2 Flow Rate FiO2 09/22/19 16:50 20 99 09/22/19 15:43 97.8 72 105/66 (79) 09/21/19 16:19 Room Air I & O 0 09/21/19 09/21/19 09/22/19 15:00 23:00 07:00 Intake Total 960 ml 720 ml Balance 960 ml 720 ml Labs: Laboratory Tests Test 09/22/19 05:54 09/22/19 07:27 [place] Level 0.7 mmol/L (0.6-1.2) [place] Last Dose Date 09/21/19 [place] Last Dose Time 2100 Glucose (Fingerstick) 78 mg/dL (70-99) Current Medications: I have reviewed the current psychotropics carefully including drug interactions. Risk benefit ratio favors no change other than as noted in my dictated progress note. Diagnosis: Problems: (1) Schizoaffective disorder, bipolar type (2) Suicidal ideation (3) Anxiety disorder (4) Impulse control disorder (5) Schizoaffective disorder, chronic condition with acute exacerbation SHYANN HEBERT MD Sep 22, 2019 19:53
[2019-09-22] MEDS: FLUTICASONE 50MCG/NASAL SPRAY 16GM BOTTLE. NS SCH (20:04)
[2019-09-22] MEDS: traZODone 100 MG TABLET. PO SCH (20:05)
[2019-09-22] MEDS: risperiDONE 1 MG TABLET. PO SCH (20:05)
[2019-09-22] MEDS: MELATONIN 3 MG TABLET PO SCH (20:05)
[2019-09-22] MEDS: ATORVASTATIN CALCIUM 20 MG TABLET PO SCH (20:05)
[2019-09-22] MEDS: METHYL SALICYLATE/MENTHOL TOPICAL OINTMENT 57GM TUBE. TP SCH (20:08)
--- NOTE | 2019-09-22 21:10 | PN ---
DATE: 09/21/2019 PSYCHIATRIC PROGRESS NOTE This late entry 09/21/2019 covers elements not covered in my initial note. SUBJECTIVE: I met with the patient in the evening and staffed at treatment team meeting with the entire team in the morning and the patient's sister, Jesus attended the conference. We had a lengthy discussion about her diagnosis, progress. The patient attended the treatment team meeting as well. Overall, patient is doing better, less hyperverbal, less grandiose, less labile in her mood. REVIEW OF SYSTEMS: Ambulation impaired, in wheelchair. No CV, , pulmonary, eye system symptoms on review. MENTAL STATUS EXAM: Oriented reasonably. Speech is coherent, abstraction fair, computation impaired, language function intact. Mood and affect overall much more stable. No suicidal or homicidal ideation. LABORATORY DATA: Reviewed. IMPRESSION: Unchanged from initial note. PLAN: No change from initial note. MAN Bradly HEBERT MD DR: ARIEL/ayah JOB#: [id number] / [id number]
[2019-09-23 05:48] VITALS: BP 126/74
[2019-09-23] MEDS: METOPROLOL TART IMMED RELEASE 25 MG TABLET PO SCH ×2 (08:40→20:30)
[2019-09-23] MEDS: FLUTICASONE 50MCG/NASAL SPRAY 16GM BOTTLE. NS SCH (08:40)
[2019-09-23] MEDS: LITHIUM CARBONATE 300 MG TABLET PO SCH ×2 (08:40→20:29)
[2019-09-23] MEDS: DULoxetine HCL 60 MG CAPSULE.DR PO SCH (08:41)
[2019-09-23] MEDS: CYANOCOBALAMIN (VITAMIN B-12) 1,000 MCG TABLET. PO SCH (08:41)
[2019-09-23] MEDS: ASPIRIN ENTERIC COATED 81 MG TABLET.DR. PO SCH (08:41)
[2019-09-23] MEDS: metFORMIN 500 MG TABLET PO SCH ×2 (08:41→17:00)
[2019-09-23] MEDS: POLYETHYLENE GLYCOL 3350 17 GM PACKET. PO SCH (08:41)
[2019-09-23] MEDS: risperiDONE 0.5 MG TABLET. PO SCH ×2 (08:41→16:00)
[2019-09-23] MEDS: POTASSIUM CHLORIDE 20 MEQ TABLET.ER. PO SCH ×2 (08:41→20:29)
[2019-09-23] MEDS: traMADol 50 MG TABLET PO PRN ×2 (08:44→14:12)
[2019-09-23] MEDS: fentaNYL 12MCG/HR 1 PATCH PATCH TD SCH (08:59)
[2019-09-23] MEDS: DICLOFENAC SODIUM 1% TOPICAL GEL 100GM TUBE. TP PRN (08:59)
[2019-09-23] MEDS: POLYVINYL ALCOHOL 1.4% OPHTH SOLUTION 15ML BOTTLE. OU PRN ×2 (08:59→20:30)
--- NOTE | 2019-09-23 11:01 | PN ---
DATE: 09/23/2019 PSYCHIATRIC PROGRESS NOTE This note covers elements not covered in my initial note 09/23/2019. SUBJECTIVE: I met with the patient in the morning. The patient slept 6-3/4 hours previous night. Overall, she is doing better, still has some mood lability. Nursing staff brought up the question of pseudobulbar affect, but this is perhaps more likely as part of her bipolar disorder, but we will give it some more time on lithium and see how she does. REVIEW OF SYSTEMS: Ambulation impaired, in wheelchair. No CV, , pulmonary, eye system symptoms on review. MENTAL STATUS EXAM: Reasonably oriented. Speech is coherent, abstraction fair, computation impaired, language function intact. Mood and affect generally improved. LABORATORY DATA: Reviewed. IMPRESSION: Unchanged from initial note. PLAN: No change from initial note. MAN Bradly HEBERT MD DR: ARIEL/ayah JOB#: [id number] / [id number]
--- NOTE | 2019-09-23 11:06 | PN ---
DATE: 09/22/2019 This late entry 09/22 covers elements not covered in my initial note. SUBJECTIVE: I met with the patient in the evening. Per SONIYA Jacobo, the patient slept 7-1/2 hours previous night. She does complain of pain in her knee and back. [place] level is 0.6. We will repeat it on Friday. She has been attending groups a little bit better, less labile in her mood. Ambulation impaired. Pain noted above. REVIEW OF SYSTEMS: No CV, , pulmonary, eye system symptoms on review. MENTAL STATUS EXAM: Reasonably oriented. Speech is coherent, has some latency. Abstraction fair, computation impaired, language function intact. Mood and affect is improved, less labile. LABORATORY DATA: Reviewed. IMPRESSION: Unchanged from initial note. PLAN: No change from initial note. MAN Bradly HEBERT MD DR: ARIEL/ayah JOB#: [id number] / [id number]
[2019-09-23 16:15] VITALS: BP 96/61
[2019-09-23] MEDS: ATORVASTATIN CALCIUM 20 MG TABLET PO SCH (20:29)
[2019-09-23] MEDS: risperiDONE 1 MG TABLET. PO SCH (20:29)
[2019-09-23] MEDS: MELATONIN 3 MG TABLET PO SCH (20:29)
[2019-09-23] MEDS: traZODone 100 MG TABLET. PO SCH (20:30)
[2019-09-23] MEDS: METHYL SALICYLATE/MENTHOL TOPICAL OINTMENT 57GM TUBE. TP SCH (20:30)
--- NOTE | 2019-09-23 20:38 | PDOC ---
Exam Note: Lance Note: Please also refer to the separate dictated note~for this date of service dictated separately.~Patient seen individually. Discussed the patient with Nursing staff reviewed the chart.~Reviewed interim history and current functioning. Reviewed vital signs,~Labs/ Radiology~and current medications noted below. Continue current treatment with the changes noted in the dictated addendum note Assessment: Vital Signs/I&O: Vital Signs Date Time Temp Pulse Resp B/P (MAP) Pulse Ox O2 Delivery O2 Flow Rate FiO2 09/23/19 20:30 102 160/90 09/23/19 16:15 97.8 16 100 09/21/19 16:19 Room Air I & O 09/22/19 09/22/19 09/23/19 15:00 23:00 07:00 Intake Total 960 ml 480 ml Balance 960 ml 480 ml Labs: Laboratory Tests Test 09/23/19 07:44 Glucose (Fingerstick) 93 mg/dL (70-99) Current Medications: I have reviewed the current psychotropics carefully including drug interactions. Risk benefit ratio favors no change other than as noted in my dictated progress note. Diagnosis: Problems: (1) Schizoaffective disorder, bipolar type (2) Suicidal ideation (3) Anxiety disorder (4) Impulse control disorder (5) Schizoaffective disorder, chronic condition with acute exacerbation SHYANN HEBERT MD Sep 23, 2019 20:38
[2019-09-24 06:29] VITALS: BP 105/60
[2019-09-24] MEDS: POLYETHYLENE GLYCOL 3350 17 GM PACKET. PO SCH (08:02)
[2019-09-24] MEDS: risperiDONE 0.5 MG TABLET. PO SCH ×2 (08:02→17:01)
[2019-09-24] MEDS: METOPROLOL TART IMMED RELEASE 25 MG TABLET PO SCH ×2 (08:03→20:13)
[2019-09-24] MEDS: DULoxetine HCL 60 MG CAPSULE.DR PO SCH (08:03)
[2019-09-24] MEDS: POTASSIUM CHLORIDE 20 MEQ TABLET.ER. PO SCH ×2 (08:03→20:12)
[2019-09-24] MEDS: ASPIRIN ENTERIC COATED 81 MG TABLET.DR. PO SCH (08:03)
[2019-09-24] MEDS: metFORMIN 500 MG TABLET PO SCH ×2 (08:03→17:00)
[2019-09-24] MEDS: LITHIUM CARBONATE 300 MG TABLET PO SCH ×2 (08:03→20:12)
[2019-09-24] MEDS: CYANOCOBALAMIN (VITAMIN B-12) 1,000 MCG TABLET. PO SCH (08:04)
[2019-09-24] MEDS: METHYL SALICYLATE/MENTHOL TOPICAL OINTMENT 57GM TUBE. TP SCH (09:46)
[2019-09-24] MEDS: POLYVINYL ALCOHOL 1.4% OPHTH SOLUTION 15ML BOTTLE. OU PRN ×2 (09:47→20:10)
[2019-09-24] MEDS: traMADol 50 MG TABLET PO PRN ×2 (09:47→17:00)
[2019-09-24 15:35] VITALS: BP 93/59
[2019-09-24 19:25] VITALS: BP 124/73
--- NOTE | 2019-09-24 20:06 | PDOC ---
Exam Note: Lance Note: Please also refer to the separate dictated note~for this date of service dictated separately.~Patient seen individually. Discussed the patient with Nursing staff reviewed the chart.~Reviewed interim history and current functioning. Reviewed vital signs,~Labs/ Radiology~and current medications noted below. Continue current treatment with the changes noted in the dictated addendum note Assessment: Vital Signs/I&O: Vital Signs Date Time Temp Pulse Resp B/P (MAP) Pulse Ox O2 Delivery O2 Flow Rate FiO2 09/24/19 19:25 76 124/73 (90) 09/24/19 15:35 97.6 16 100 09/21/19 16:19 Room Air I & O 09/23/19 09/23/19 09/24/19 15:00 23:00 07:00 Intake Total 480 ml 480 ml Balance 480 ml 480 ml Labs: Laboratory Tests Test 09/24/19 07:41 Glucose (Fingerstick) 68 mg/dL (70-99) L Current Medications: I have reviewed the current psychotropics carefully including drug interactions. Risk benefit ratio favors no change other than as noted in my dictated progress note. Diagnosis: Problems: (1) Suicidal ideation (2) Anxiety disorder (3) Impulse control disorder (4) Schizoaffective disorder, chronic condition with acute exacerbation (5) Schizoaffective disorder, bipolar type SHYANN HEBERT MD Sep 24, 2019 20:06
[2019-09-24] MEDS: FLUTICASONE 50MCG/NASAL SPRAY 16GM BOTTLE. NS SCH (20:10)
[2019-09-24] MEDS: METHYL SALICYLATE/MENTHOL TOPICAL OINTMENT 57GM TUBE. TP PRN (20:11)
[2019-09-24] MEDS: ATORVASTATIN CALCIUM 20 MG TABLET PO SCH (20:13)
[2019-09-24] MEDS: risperiDONE 1 MG TABLET. PO SCH (20:13)
[2019-09-24] MEDS: traZODone 100 MG TABLET. PO SCH (20:13)
[2019-09-24] MEDS: MELATONIN 3 MG TABLET PO SCH (20:13)
[2019-09-25 05:59] VITALS: BP 105/65
[2019-09-25] MEDS: DULoxetine HCL 60 MG CAPSULE.DR PO SCH (08:52)
[2019-09-25] MEDS: CYANOCOBALAMIN (VITAMIN B-12) 1,000 MCG TABLET. PO SCH (08:52)
[2019-09-25] MEDS: POTASSIUM CHLORIDE 20 MEQ TABLET.ER. PO SCH ×2 (08:52→21:35)
[2019-09-25] MEDS: LITHIUM CARBONATE 300 MG TABLET PO SCH ×2 (08:53→21:36)
[2019-09-25] MEDS: metFORMIN 500 MG TABLET PO SCH ×2 (08:53→17:19)
[2019-09-25] MEDS: METOPROLOL TART IMMED RELEASE 25 MG TABLET PO SCH ×2 (08:53→21:43)
[2019-09-25] MEDS: ASPIRIN ENTERIC COATED 81 MG TABLET.DR. PO SCH (08:53)
[2019-09-25] MEDS: risperiDONE 0.5 MG TABLET. PO SCH ×3 (08:54→21:36)
[2019-09-25] MEDS: POLYETHYLENE GLYCOL 3350 17 GM PACKET. PO SCH (08:57)
[2019-09-25] MEDS: METHYL SALICYLATE/MENTHOL TOPICAL OINTMENT 57GM TUBE. TP PRN (08:57)
[2019-09-25] MEDS: traMADol 50 MG TABLET PO PRN ×2 (09:42→17:21)
[2019-09-25 15:50] VITALS: BP 109/71
[2019-09-25] MEDS: POLYVINYL ALCOHOL 1.4% OPHTH SOLUTION 15ML BOTTLE. OU PRN (21:34)
[2019-09-25] MEDS: FLUTICASONE 50MCG/NASAL SPRAY 16GM BOTTLE. NS SCH (21:34)
[2019-09-25] MEDS: ATORVASTATIN CALCIUM 20 MG TABLET PO SCH (21:35)
[2019-09-25] MEDS: METHYL SALICYLATE/MENTHOL TOPICAL OINTMENT 57GM TUBE. TP SCH (21:35)
[2019-09-25] MEDS: traZODone 100 MG TABLET. PO SCH (21:36)
[2019-09-25] MEDS: MELATONIN 3 MG TABLET PO SCH (21:36)
[2019-09-25] MEDS: risperiDONE 1 MG TABLET. PO SCH (21:46)
[2019-09-25 21:47] VITALS: BP 127/78
--- NOTE | 2019-09-25 21:55 | PDOC ---
Exam Note: Lance Note: Please also refer to the separate dictated note~for this date of service dictated separately.~Patient seen individually. Discussed the patient with Nursing staff reviewed the chart.~Reviewed interim history and current functioning. Reviewed vital signs,~Labs/ Radiology~and current medications noted below. Continue current treatment with the changes noted in the dictated addendum note Assessment: Vital Signs/I&O: Vital Signs Date Time Temp Pulse Resp B/P (MAP) Pulse Ox O2 Delivery O2 Flow Rate FiO2 09/25/19 21:47 98.0 85 18 127/78 (94) 100 Room Air I & O 09/24/19 09/24/19 09/25/19 15:00 23:00 07:00 Intake Total 600 ml 600 ml Balance 600 ml 600 ml Labs: Laboratory Tests Test 09/25/19 07:17 Glucose (Fingerstick) 68 mg/dL (70-99) L Current Medications: I have reviewed the current psychotropics carefully including drug interactions. Risk benefit ratio favors no change other than as noted in my dictated progress note. Diagnosis: Problems: (1) Schizoaffective disorder, bipolar type (2) Fall (3) Schizophrenia (4) Hysteria (5) Suicidal ideation (6) Anxiety disorder (7) Impulse control disorder (8) Schizoaffective disorder, chronic condition with acute exacerbation (9) Schizophrenia, disorganized, subchronic with acute exacerbation SHYANN HEBERT MD Sep 25, 2019 21:55
[2019-09-26 05:58] VITALS: BP 101/61
[2019-09-26] MEDS: risperiDONE 0.5 MG TABLET. PO SCH ×2 (08:42→17:44)
[2019-09-26] MEDS: ASPIRIN ENTERIC COATED 81 MG TABLET.DR. PO SCH (08:42)
[2019-09-26] MEDS: metFORMIN 500 MG TABLET PO SCH ×2 (08:42→17:44)
[2019-09-26] MEDS: POTASSIUM CHLORIDE 20 MEQ TABLET.ER. PO SCH ×2 (08:43→20:05)
[2019-09-26] MEDS: LITHIUM CARBONATE 300 MG TABLET PO SCH ×2 (08:43→20:05)
[2019-09-26] MEDS: DULoxetine HCL 60 MG CAPSULE.DR PO SCH (08:43)
[2019-09-26] MEDS: CYANOCOBALAMIN (VITAMIN B-12) 1,000 MCG TABLET. PO SCH (08:43)
[2019-09-26] MEDS: fentaNYL 12MCG/HR 1 PATCH PATCH TD SCH (08:44)
[2019-09-26] MEDS: FLUTICASONE 50MCG/NASAL SPRAY 16GM BOTTLE. NS SCH (08:47)
[2019-09-26] MEDS: traMADol 50 MG TABLET PO PRN ×2 (08:48→17:45)
[2019-09-26] MEDS: METOPROLOL TART IMMED RELEASE 25 MG TABLET PO SCH ×2 (08:54→20:05)
[2019-09-26] MEDS: POLYVINYL ALCOHOL 1.4% OPHTH SOLUTION 15ML BOTTLE. OU PRN ×2 (08:56→20:05)
[2019-09-26] MEDS: METHYL SALICYLATE/MENTHOL TOPICAL OINTMENT 57GM TUBE. TP PRN (08:56)
[2019-09-26] MEDS: POLYETHYLENE GLYCOL 3350 17 GM PACKET. PO SCH ×2 (09:00→12:17)
[2019-09-26 16:13] VITALS: BP 94/59
[2019-09-26 19:45] VITALS: BP 112/66
[2019-09-26] MEDS: METHYL SALICYLATE/MENTHOL TOPICAL OINTMENT 57GM TUBE. TP SCH (20:05)
[2019-09-26] MEDS: traZODone 100 MG TABLET. PO SCH (20:05)
[2019-09-26] MEDS: risperiDONE 1 MG TABLET. PO SCH (20:05)
[2019-09-26] MEDS: MELATONIN 3 MG TABLET PO SCH (20:06)
[2019-09-26] MEDS: ATORVASTATIN CALCIUM 20 MG TABLET PO SCH (20:06)
--- NOTE | 2019-09-26 20:39 | PDOC ---
Exam Note: Lance Note: Please also refer to the separate dictated note~for this date of service dictated separately.~Patient seen individually. Discussed the patient with Nursing staff reviewed the chart.~Reviewed interim history and current functioning. Reviewed vital signs,~Labs/ Radiology~and current medications noted below. Continue current treatment with the changes noted in the dictated addendum note Assessment: Vital Signs/I&O: Vital Signs Date Time Temp Pulse Resp B/P (MAP) Pulse Ox O2 Delivery O2 Flow Rate FiO2 09/26/19 20:05 68 112/66 09/26/19 19:45 97.8 16 100 Room Air I & O 09/25/19 09/25/19 09/26/19 14:59 22:59 06:59 Intake Total 480 ml 360 ml Balance 480 ml 360 ml Labs: Laboratory Tests Test 09/26/19 07:14 Glucose (Fingerstick) 96 mg/dL (70-99) Current Medications: I have reviewed the current psychotropics carefully including drug interactions. Risk benefit ratio favors no change other than as noted in my dictated progress note. Diagnosis: Problems: (1) Schizoaffective disorder, bipolar type (2) Suicidal ideation (3) Anxiety disorder (4) Impulse control disorder (5) Schizoaffective disorder, chronic condition with acute exacerbation SHYANN HEBERT MD Sep 26, 2019 20:39
--- NOTE | 2019-09-26 21:57 | PN ---
DATE: 09/24/2019 PSYCHIATRIC PROGRESS NOTE This late entry 09/24/2019 covers elements not covered in my initial note. SUBJECTIVE: I met with the patient individually. Per nursing report, patient slept 6-3/4 hours previous night. She was cooperative with physical therapy, somewhat needy, anxious, but less grandiose. REVIEW OF SYSTEMS: Ambulation impaired, in wheelchair. No CV, , pulmonary, eye system symptoms on review. MENTAL STATUS EXAM: Reasonably oriented. Speech is coherent, less pressured. Abstraction fair, computation impaired, language function intact. Mood and affect appears less labile and hypomanic. LABORATORY DATA: Reviewed. IMPRESSION: Unchanged from initial note. PLAN: No change from initial note. SHYANN HEBERT MD DR: ARIEL/ayah JOB#: [id number] / [id number]
--- NOTE | 2019-09-27 02:30 | PN ---
DATE: 09/25/2019 PSYCHIATRIC PROGRESS NOTE This late entry 09/25/2019 covers elements not covered in my initial note. SUBJECTIVE: I met with the patient individually on 09/25/2019. The patient slept for 3/4 hours previous night. She has been more appropriate on the unit, less hyperverbal. REVIEW OF SYSTEMS: Ambulation impaired, in wheelchair. No CV, , pulmonary, eye system symptoms on review. MENTAL STATUS EXAM: The patient is reasonably oriented. Speech is coherent, less pressured. Abstraction fair, computation somewhat impaired, language function intact, attention span short. Mood and affect overall appears more stable. No suicidal or homicidal ideation. LABORATORY DATA: Reviewed. IMPRESSION: Unchanged from initial note. Schizoaffective disorder, bipolar type, mixed with psychotic features, in partial remission; anxiety disorder, unspecified. PLAN: No change from initial note. [place] level is therapeutic. MAN Bradly HEBERT MD DR: ARIEL/ayah JOB#: [id number] / [id number]
[2019-09-27] MEDS: traMADol 50 MG TABLET PO PRN ×2 (04:51→16:24)
[2019-09-27 06:16] VITALS: BP 135/73
[2019-09-27] MEDS: POTASSIUM CHLORIDE 20 MEQ TABLET.ER. PO SCH ×2 (08:20→20:09)
[2019-09-27] MEDS: POLYETHYLENE GLYCOL 3350 17 GM PACKET. PO SCH (08:20)
[2019-09-27] MEDS: CYANOCOBALAMIN (VITAMIN B-12) 1,000 MCG TABLET. PO SCH (08:20)
[2019-09-27] MEDS: DULoxetine HCL 60 MG CAPSULE.DR PO SCH (08:20)
[2019-09-27] MEDS: metFORMIN 500 MG TABLET PO SCH ×2 (08:20→16:24)
[2019-09-27] MEDS: LITHIUM CARBONATE 300 MG TABLET PO SCH ×2 (08:20→20:08)
[2019-09-27] MEDS: ASPIRIN ENTERIC COATED 81 MG TABLET.DR. PO SCH (08:22)
[2019-09-27] MEDS: METOPROLOL TART IMMED RELEASE 25 MG TABLET PO SCH ×2 (08:22→20:09)
[2019-09-27] MEDS: risperiDONE 0.5 MG TABLET. PO SCH ×2 (08:23→16:24)
[2019-09-27 09:10] LABS: BASO % 1 % (0-3); EOS % 0 % (0-3); HEMATOCRIT 34.7 % (36.0-47.0); HEMOGLOBIN 11.5 g/dL (12.0-15.5); LYMPH % 16 % (24-48); MEAN CORPUSCULAR HEMOGLOBIN 30 pg (25-35); MEAN CORPUSCULAR HGB CONC 33 g/dL (31-37); MEAN CORPUSCULAR VOLUME 90 fL (79-100); MONO # 0.6 x10^3/uL (0.0-1.1); MONO % 9 % (0-9); NEUT # 4.8 x10^3uL (1.8-7.7); NEUT % 75 % (31-73); PLATELET COUNT 299 x10^3/uL (140-400); RED BLOOD COUNT 3.86 x10^6/uL (3.50-5.40); RED CELL DISTRIBUTION WIDTH 15.4 % (11.5-14.5); WHITE BLOOD COUNT 6.4 x10^3/uL (4.0-11.0)
[2019-09-27 09:23] LABS: ALBUMIN 3.5 g/dL (3.4-5.0); ALBUMIN/GLOBULIN RATIO 1.1 (1.0-1.7); CALCIUM 8.7 mg/dL (8.5-10.1); CREATININE 0.6 mg/dL (0.6-1.0); GFR 99.4; POTASSIUM 4.1 mmol/L (3.5-5.1); TOTAL BILIRUBIN 0.6 mg/dL (0.2-1.0); TOTAL PROTEIN 6.8 g/dL (6.4-8.2)
[2019-09-27] MEDS: METHYL SALICYLATE/MENTHOL TOPICAL OINTMENT 57GM TUBE. TP PRN (09:29)
[2019-09-27] MEDS: POLYVINYL ALCOHOL 1.4% OPHTH SOLUTION 15ML BOTTLE. OU PRN ×2 (09:30→20:08)
--- NOTE | 2019-09-27 12:38 | TX PLAN ---
Interdisciplinary Tx Plan Admission Information Sep 10, 2019 at 17:56 Legal Status (on Admission): Voluntary DPOA/Guardian Name: Jesus Schwarz Contact Other Contact Name: [facility] Other Contact Verified Code Status: DNR Allergies: Coded Allergies: amitriptyline (Verified Allergy, Unknown, 09/10/19) bupropion (Verified Allergy, Unknown, 09/10/19) divalproex sodium (Verified Allergy, Unknown, 09/10/19) erythromycin base (Verified Allergy, Unknown, 09/10/19) hydrocodone (Verified Allergy, Unknown, 09/10/19) loxapine (Verified Allergy, Unknown, 09/10/19) molindone (Verified Allergy, Unknown, 09/10/19) topiramate (Verified Allergy, Unknown, 09/10/19) Diagnoses Primary Diagnosis: Schizoaffective D/O with acute exacerbation Reasons for Admission: Depressed, Anxiety/Panic, Suicidal ideation, Poor impulse control, Other Problem in Patient's Words: "She has a long history of behaviors. Where would you like for me to begin?" Additional Admission Comments: According to the intake, pt is wandering the halls, hysterically crying, SI stating "I want to kill myself" and plan to stick speaker wirer or finger in the outlet. Depressed, anxious, attention seeking. Problems Active Problems: SI with plan to hurt self Anxious Attention-seeking Labile mood Inactive Problems: Medication compliance Pt Strengths/Limitations Ability for [place]: Poor Cognitive Functioning/Ability: Fair Communication Skills/Ability: Fair Financial Resources: Fair Insight/Judgement: Poor Intellectual Ability: Fair Physical Health: Poor Social Skills: Fair Stability in Family: Good Stability in School/Work: Poor Verbal Skills: Fair Discharge Criteria Discharge Criteria: Adequate arrangements @DC, Adequate self-care, Improved behavior, Improved mood/thought Preliminary Discharge Plan Preliminary DC Plan: Current Living Arrange. Special Precautions Fall Risk: Low Initial D/C Plan After assessment, pt will return to [facility].. Identified Discharge Needs: Contiued mental health services (psychiatric and counseling) May need to consider an alternate placement. Currently Utilized Resources Currently Utilized Resources/P: Sees Primary Care Physician Supportive placement for the last 10 years. Referrals Community Resources: Mental health services that can meet pt needs at placement. Additional Information Pt has lived at placement for the last 10 years. It has been discussed that pt may need to have a different placement that can better suit pt needs. Identified Problems/Hx/Goals Objectives/Short-Term Goals Short Term Goals: Dec. Aggression, Dec. Anxiety/Panic, Medication Stabilization, Monitor Med Effects, No Suicidal/Mu. 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 Education: High school 12th grade Treatment Plan Explained Patient/Career Development Consultant had this treatment plan explained to him/her as indicated by the signature below and has been given the opportunity to ask questions and make suggestions: Date: Patient/Career Development Consultant Signature: Team Members Signatures Team Members Psychiatrist Date Nursing Date CM/SW Date Activity Therapy Date Other Date Other Date TATIANA CORDOVA Sep 27, 2019 12:38
[2019-09-27] MEDS: FLUTICASONE 50MCG/NASAL SPRAY 16GM BOTTLE. NS SCH (20:07)
[2019-09-27] MEDS: traZODone 100 MG TABLET. PO SCH (20:08)
[2019-09-27] MEDS: MELATONIN 3 MG TABLET PO SCH (20:09)
[2019-09-27] MEDS: risperiDONE 1 MG TABLET. PO SCH (20:10)
[2019-09-27] MEDS: ATORVASTATIN CALCIUM 20 MG TABLET PO SCH (20:10)
[2019-09-27] MEDS: METHYL SALICYLATE/MENTHOL TOPICAL OINTMENT 57GM TUBE. TP SCH (20:10)
--- NOTE | 2019-09-27 20:55 | PDOC ---
Exam Note: Lance Note: Please also refer to the separate dictated note~for this date of service dictated separately.~Patient seen individually. Discussed the patient with Nursing staff reviewed the chart.~Reviewed interim history and current functioning. Reviewed vital signs,~Labs/ Radiology~and current medications noted below. Continue current treatment with the changes noted in the dictated addendum note Assessment: Vital Signs/I&O: Vital Signs Date Time Temp Pulse Resp B/P (MAP) Pulse Ox O2 Delivery O2 Flow Rate FiO2 09/27/19 20:09 74 130/75 09/27/19 17:24 96 09/27/19 06:16 97.9 14 09/26/19 19:45 Room Air I & O 09/26/19 09/26/19 09/27/19 15:00 23:00 07:00 Intake Total 360 ml 720 ml Balance 360 ml 720 ml Labs: Laboratory Tests Test 09/27/19 08:18 09/27/19 08:55 Glucose (Fingerstick) 73 mg/dL (70-99) White Blood Count 6.4 x10^3/uL (4.0-11.0) Red Blood Count 3.86 x10^6/uL (3.50-5.40) Hemoglobin 11.5 g/dL (12.0-15.5) L Hematocrit 34.7 % (36.0-47.0) L Mean Corpuscular Volume 90 fL (79-100) Mean Corpuscular Hemoglobin 30 pg (25-35) Mean Corpuscular Hemoglobin Concent 33 g/dL (31-37) Red Cell Distribution Width 15.4 % (11.5-14.5) H Platelet Count 299 x10^3/uL (140-400) Neutrophils (%) (Auto) 75 % (31-73) H Lymphocytes (%) (Auto) 16 % (24-48) L Monocytes (%) (Auto) 9 % (0-9) Eosinophils (%) (Auto) 0 % (0-3) Basophils (%) (Auto) 1 % (0-3) Neutrophils # (Auto) 4.8 x10^3uL (1.8-7.7) Lymphocytes # (Auto) 1.0 x10^3/uL (1.0-4.8) Monocytes # (Auto) 0.6 x10^3/uL (0.0-1.1) Eosinophils # (Auto) 0.0 x10^3/uL (0.0-0.7) Basophils # (Auto) 0.0 x10^3/uL (0.0-0.2) Sodium Level 138 mmol/L (136-145) Potassium Level 4.1 mmol/L (3.5-5.1) Chloride Level 103 mmol/L (98-107) Carbon Dioxide Level 26 mmol/L (21-32) Anion Gap 9 (6-14) Blood Urea Nitrogen 6 mg/dL (7-20) L Creatinine 0.6 mg/dL (0.6-1.0) Estimated GFR (Cockcroft-Gault) 99.4 BUN/Creatinine Ratio 10 (6-20) Glucose Level 171 mg/dL (70-99) H Calcium Level 8.7 mg/dL (8.5-10.1) Total Bilirubin 0.6 mg/dL (0.2-1.0) Aspartate Amino Transferase (AST) 13 U/L (15-37) L Alanine Aminotransferase (ALT) 16 U/L (14-59) Alkaline Phosphatase 101 U/L (46-116) Total Protein 6.8 g/dL (6.4-8.2) Albumin 3.5 g/dL (3.4-5.0) Albumin/Globulin Ratio 1.1 (1.0-1.7) Current Medications: I have reviewed the current psychotropics carefully including drug interactions. Risk benefit ratio favors no change other than as noted in my dictated progress note. Diagnosis: Problems: (1) Schizoaffective disorder, bipolar type (2) Suicidal ideation (3) Anxiety disorder (4) Impulse control disorder (5) Schizoaffective disorder, chronic condition with acute exacerbation SHYANN HEBERT MD Sep 27, 2019 20:55
--- NOTE | 2019-09-27 22:21 | PN ---
DATE: 09/26/2019 PSYCHIATRIC PROGRESS NOTE This late entry 09/26/2019 covers elements not covered in my initial note. SUBJECTIVE: I met with the patient in the evening at length. Overall, per nursing report, patient is doing better, less anxious, less labile in her mood. She is still preoccupied with her pain frequently wanting tramadol and I addressed this with her. REVIEW OF SYSTEMS: Ambulation impaired, in wheelchair and the pain noted. No CV, , pulmonary, eye system symptoms on review. MENTAL STATUS EXAM: Reasonably oriented. Speech is coherent, less pressured. Abstraction fair, computation impaired, language function intact. Mood and affect less labile. LABORATORY DATA: Reviewed. IMPRESSION: Unchanged from initial note. PLAN: No change from initial note. MAN Bradly HEBERT MD DR: ARIEL/ayah JOB#: [id number] / [id number]
[2019-09-28 05:45] VITALS: BP 106/64
[2019-09-28] MEDS: DULoxetine HCL 60 MG CAPSULE.DR PO SCH (08:20)
[2019-09-28] MEDS: POTASSIUM CHLORIDE 20 MEQ TABLET.ER. PO SCH ×2 (08:20→20:02)
[2019-09-28] MEDS: POLYETHYLENE GLYCOL 3350 17 GM PACKET. PO SCH (08:20)
[2019-09-28] MEDS: LITHIUM CARBONATE 300 MG TABLET PO SCH ×2 (08:21→20:03)
[2019-09-28] MEDS: CYANOCOBALAMIN (VITAMIN B-12) 1,000 MCG TABLET. PO SCH (08:21)
[2019-09-28] MEDS: risperiDONE 0.5 MG TABLET. PO SCH ×2 (08:21→17:22)
[2019-09-28] MEDS: ASPIRIN ENTERIC COATED 81 MG TABLET.DR. PO SCH (08:21)
[2019-09-28] MEDS: metFORMIN 500 MG TABLET PO SCH ×2 (08:22→17:22)
[2019-09-28] MEDS: METOPROLOL TART IMMED RELEASE 25 MG TABLET PO SCH ×2 (08:22→20:02)
[2019-09-28] MEDS: FLUTICASONE 50MCG/NASAL SPRAY 16GM BOTTLE. NS SCH ×2 (08:23→20:01)
[2019-09-28] MEDS: POLYVINYL ALCOHOL 1.4% OPHTH SOLUTION 15ML BOTTLE. OU PRN ×2 (08:23→20:01)
[2019-09-28] MEDS: METHYL SALICYLATE/MENTHOL TOPICAL OINTMENT 57GM TUBE. TP PRN (08:23)
[2019-09-28] MEDS: DICLOFENAC SODIUM 1% TOPICAL GEL 100GM TUBE. TP PRN (09:06)
[2019-09-28] MEDS: traMADol 50 MG TABLET PO PRN (09:07)
[2019-09-28 15:49] VITALS: BP 110/67
[2019-09-28] MEDS: risperiDONE 1 MG TABLET. PO SCH (20:02)
[2019-09-28] MEDS: ATORVASTATIN CALCIUM 20 MG TABLET PO SCH (20:02)
[2019-09-28] MEDS: MELATONIN 3 MG TABLET PO SCH (20:03)
[2019-09-28] MEDS: traZODone 100 MG TABLET. PO SCH (20:03)
[2019-09-28] MEDS: METHYL SALICYLATE/MENTHOL TOPICAL OINTMENT 57GM TUBE. TP SCH (20:09)
--- NOTE | 2019-09-28 20:38 | PDOC ---
Exam Note: Lance Note: Please also refer to the separate dictated note~for this date of service dictated separately.~Patient seen individually. Discussed the patient with Nursing staff reviewed the chart.~Reviewed interim history and current functioning. Reviewed vital signs,~Labs/ Radiology~and current medications noted below. Continue current treatment with the changes noted in the dictated addendum note Assessment: Vital Signs/I&O: Vital Signs Date Time Temp Pulse Resp B/P (MAP) Pulse Ox O2 Delivery O2 Flow Rate FiO2 09/28/19 20:02 66 110/67 09/28/19 15:49 97.1 16 99 09/26/19 19:45 Room Air I & O 09/27/19 09/27/19 09/28/19 15:00 23:00 07:00 Intake Total 840 ml 360 ml Balance 840 ml 360 ml Labs: Laboratory Tests Test 09/28/19 07:23 Glucose (Fingerstick) 94 mg/dL (70-99) Current Medications: I have reviewed the current psychotropics carefully including drug interactions. Risk benefit ratio favors no change other than as noted in my dictated progress note. Diagnosis: Problems: (1) Schizoaffective disorder, bipolar type (2) Suicidal ideation (3) Anxiety disorder (4) Impulse control disorder (5) Schizoaffective disorder, chronic condition with acute exacerbation SHYANN HEBERT MD Sep 28, 2019 20:38
--- NOTE | 2019-09-28 21:06 | PN ---
DATE: 09/27/2019 PSYCHIATRIC PROGRESS NOTE This late entry 09/27/2019 covers elements not covered in my initial note. SUBJECTIVE: I met with the patient evening of 09/27/2019. Per SONIYA Tong, the patient slept 7-1/4 hours previous night. She complains of ongoing back pain, receives tramadol almost round the clock, tearful at times in the day, but spending more time in the day room. REVIEW OF SYSTEMS: Ambulation impaired, in wheelchair, back pain. No CV, , pulmonary, eye system symptoms on review. MENTAL STATUS EXAM: Reasonably oriented. Speech is coherent, less pressured. Abstraction fair, computation impaired, language function intact. Mood and affect less labile, anxious. LABORATORY DATA: Reviewed. IMPRESSION: Unchanged from initial note. PLAN: No change from initial note. MAN Bradly HEBERT MD DR: ARIEL/ayah JOB#: [id number] / [id number]
[2019-09-29 06:05] VITALS: BP 121/79
[2019-09-29] MEDS: POLYETHYLENE GLYCOL 3350 17 GM PACKET. PO SCH (08:39)
[2019-09-29] MEDS: POLYVINYL ALCOHOL 1.4% OPHTH SOLUTION 15ML BOTTLE. OU PRN ×2 (08:39→20:36)
[2019-09-29] MEDS: METOPROLOL TART IMMED RELEASE 25 MG TABLET PO SCH ×2 (08:40→20:40)
[2019-09-29] MEDS: metFORMIN 500 MG TABLET PO SCH ×2 (08:40→17:18)
[2019-09-29] MEDS: ASPIRIN ENTERIC COATED 81 MG TABLET.DR. PO SCH (08:40)
[2019-09-29] MEDS: fentaNYL 12MCG/HR 1 PATCH PATCH TD SCH (08:40)
[2019-09-29] MEDS: risperiDONE 0.5 MG TABLET. PO SCH ×2 (08:40→17:18)
[2019-09-29] MEDS: POTASSIUM CHLORIDE 20 MEQ TABLET.ER. PO SCH ×2 (08:41→20:36)
[2019-09-29] MEDS: LITHIUM CARBONATE 300 MG TABLET PO SCH ×2 (08:41→20:37)
[2019-09-29] MEDS: CYANOCOBALAMIN (VITAMIN B-12) 1,000 MCG TABLET. PO SCH (08:41)
[2019-09-29] MEDS: DULoxetine HCL 60 MG CAPSULE.DR PO SCH (08:41)
[2019-09-29] MEDS: traMADol 50 MG TABLET PO PRN ×2 (10:11→20:46)
[2019-09-29 15:48] VITALS: BP 105/68
[2019-09-29] MEDS: FLUTICASONE 50MCG/NASAL SPRAY 16GM BOTTLE. NS SCH (20:35)
[2019-09-29] MEDS: METHYL SALICYLATE/MENTHOL TOPICAL OINTMENT 57GM TUBE. TP SCH (20:36)
[2019-09-29] MEDS: ATORVASTATIN CALCIUM 20 MG TABLET PO SCH (20:36)
[2019-09-29] MEDS: risperiDONE 1 MG TABLET. PO SCH (20:36)
[2019-09-29] MEDS: MELATONIN 3 MG TABLET PO SCH (20:37)
[2019-09-29] MEDS: traZODone 100 MG TABLET. PO SCH (21:00)
--- NOTE | 2019-09-29 23:38 | PN ---
DATE: 09/28/2019 PSYCHIATRIC PROGRESS NOTE This late entry 09/28/2019 covers elements not covered in my initial note. SUBJECTIVE: I met with the patient individually. Per SONIYA Hoffman, the patient slept 7-1/2 hours previous night. The patient has been tearful in the morning, somewhat medication and attention seeking per nursing report, did better with her anxiety pills p.r.n. REVIEW OF SYSTEMS: No CV, , pulmonary, eye system symptoms on review. Gait unsteady, in wheelchair. She does complain of some chronic pain. MENTAL STATUS EXAM: She is reasonably oriented. Speech coherent. Thought processes goal directed. Intellect average. Insight good. Judgment intact. Mood and affect less labile. LABORATORY DATA: Reviewed. IMPRESSION: Unchanged from initial note. PLAN: No change from initial note. MAN Bradly HEBERT MD DR: ARIEL/ayah JOB#: [id number] / [id number]
--- NOTE | 2019-09-29 23:57 | PN ---
DATE: 09/29/2019 SUBJECTIVE: The patient was seen today, met with the staff, chart reviewed. The patient states she is in chronic pain. The patient is also on wheelchair. The patient denies of any falls and denies of any side effects to the medications. The patient also at times emotionally labile, tearful at times. OBSERVATION: VITAL SIGNS: Temperature 97.6, blood pressure 121/79, pulse 75, respiration 18, O2 sat 92%. GENERAL: Slept about 7 hours last night. The patient's appetite is fair. MEDICATIONS: The patient's current medications include lithium carbonate 300 mg twice a day, Cymbalta 60 mg daily, melatonin 5 mg at night, Risperdal 0.5 mg b.i.d., trazodone 100 mg at night, Risperdal 1 mg at night. LABORATORY DATA: The patient's lab reviewed. The patient's lithium level was 0.7 and the patient is not having any side effects. ASSESSMENT: Schizoaffective disorder, bipolar type; impulse control disorder, unspecified. PLAN: Continue with the treatment. LENGTH OF STAY: Two days. The patient is planned to return to the [facility] she came from. JOYCELYN LACKEY MD DR: YOBANY/ayah JOB#: [id number] / [id number]
[2019-09-30] MEDS ORDERED: LITH300T3 PO (00:05)
[2019-09-30] MEDS ORDERED: MAG355OR17 PO (00:06)
[2019-09-30] MEDS ORDERED: FENT-73 TD (00:07)
[2019-09-30] MEDS ORDERED: POTA20TA4 PO (00:07)
[2019-09-30] MEDS ORDERED: TRAM50TA PO (00:08)
[2019-09-30] MEDS ORDERED: TRAZ-86 PO (00:09)
[2019-09-30 06:07] VITALS: BP 120/76
[2019-09-30] MEDS: METHYL SALICYLATE/MENTHOL TOPICAL OINTMENT 57GM TUBE. TP PRN (09:18)
[2019-09-30] MEDS: DULoxetine HCL 60 MG CAPSULE.DR PO SCH (09:18)
[2019-09-30] MEDS: POLYETHYLENE GLYCOL 3350 17 GM PACKET. PO SCH (09:18)
[2019-09-30] MEDS: POLYVINYL ALCOHOL 1.4% OPHTH SOLUTION 15ML BOTTLE. OU PRN (09:18)
[2019-09-30] MEDS: metFORMIN 500 MG TABLET PO SCH ×2 (09:18→17:36)
[2019-09-30] MEDS: LITHIUM CARBONATE 300 MG TABLET PO SCH ×2 (09:19→20:35)
[2019-09-30] MEDS: POTASSIUM CHLORIDE 20 MEQ TABLET.ER. PO SCH ×2 (09:19→20:35)
[2019-09-30] MEDS: risperiDONE 0.5 MG TABLET. PO SCH ×2 (09:19→17:36)
[2019-09-30] MEDS: traMADol 50 MG TABLET PO PRN ×2 (09:19→17:36)
[2019-09-30] MEDS: ASPIRIN ENTERIC COATED 81 MG TABLET.DR. PO SCH (09:19)
[2019-09-30] MEDS: CYANOCOBALAMIN (VITAMIN B-12) 1,000 MCG TABLET. PO SCH (09:19)
[2019-09-30] MEDS: METOPROLOL TART IMMED RELEASE 25 MG TABLET PO SCH ×2 (09:20→20:37)
[2019-09-30 16:22] VITALS: BP 99/63
[2019-09-30] MEDS: MELATONIN 3 MG TABLET PO SCH (20:35)
[2019-09-30] MEDS: traZODone 100 MG TABLET. PO SCH (20:37)
[2019-09-30] MEDS: risperiDONE 1 MG TABLET. PO SCH (20:37)
[2019-09-30] MEDS: METHYL SALICYLATE/MENTHOL TOPICAL OINTMENT 57GM TUBE. TP SCH (20:38)
[2019-09-30] MEDS: ATORVASTATIN CALCIUM 20 MG TABLET PO SCH (20:38)
[2019-09-30] MEDS: FLUTICASONE 50MCG/NASAL SPRAY 16GM BOTTLE. NS SCH (20:38)
--- NOTE | 2019-09-30 22:06 | DS ---
DATE OF DISCHARGE: 10/01/2019 FINAL DIAGNOSES: AXIS I: 1. Schizoaffective disorder, bipolar type, mixed with psychotic features. 2. Anxiety disorder, unspecified. 3. Impulse control disorder, unspecified. AXIS II: None. AXIS III: Hypertension, gastroesophageal reflux disease, muscle weakness, rheumatoid arthritis, history of recurrent urinary tract infections, diabetes mellitus, and macular degeneration. REASON FOR ADMISSION: This 69-year-old female was admitted to [facility] inpatient at [facility] from [facility] and referred by Dr. Nelson Mejia. The patient also had a psychiatric consultation by Telepsychiatry and recommendation for her to come here. The patient apparently has been under lot of stress, increased anxiety, behavior problems, putting herself on the floor, making suicidal statements, and also wandering, threatening to kill herself. The patient also made a statement that she is going to electrocute herself by putting her fingers in an electric outlet. The patient apparently was kept there for 15 minutes check. The patient has a diagnosis of schizoaffective disorder, bipolar type, with acute exacerbation. HISTORY OF PRESENT ILLNESS: The patient has been treated for schizoaffective disorder and she has been at this facility for quite some time. The patient is also exhibiting symptoms off and on over a period of several years. The patient is also exhibiting mood swings, racing thoughts, hypermanic behaviors and also periods of depression, feeling hopeless, worthless, and suicidal ideation. HOSPITAL COURSE: The patient had a physical exam and routine lab work including CBC, chem profile, and urinalysis. The patient's labs are within the normal range except hemoglobin level of 11.5. The patient's hemoglobin A1c was 5.5. The patient was involved in the program including individual therapy, group therapy, and activity therapy. The patient was on the following medications during the stay here, lithium carbonate 300 mg b.i.d. p.o. She was also on fentanyl patch 12 mcg per hour every 3 days, Cymbalta 60 mg daily, tramadol 50 mg q. 6 hours p.r.n., potassium chloride 20 mEq b.i.d., melatonin 5 mg at night, trazodone 100 mg p.r.n. bedtime p.o. The patient was also on Risperdal 0.5 mg b.i.d., trazodone 100 mg at night, and Risperdal 1 mg at night. The patient was also on Flonase, Lipitor, metoprolol, calcium carbonate, and Voltaren. The patient responded fairly well to medications and able to attend most of the activities. AFTERCARE PLAN: The patient will be returning to [facility] and continue to follow up with her primary care doctor and continue with the medications listed above. The patient at the time of discharge is medically stable and was not expressing any suicidal or homicidal thoughts. JOYCELYN LACKEY MD DR: YOBANY/ayah JOB#: [id number] / [id number]
[2019-10-01] MEDS ORDERED: FENT-73 TD (00:04)
[2019-10-01 05:00] VITALS: BP 123/71
[2019-10-01] MEDS: metFORMIN 500 MG TABLET PO SCH (08:35)
[2019-10-01] MEDS: LITHIUM CARBONATE 300 MG TABLET PO SCH (08:35)
[2019-10-01] MEDS: ASPIRIN ENTERIC COATED 81 MG TABLET.DR. PO SCH (08:35)
[2019-10-01 08:36] VITALS: BP 123/71
[2019-10-01] MEDS: POLYETHYLENE GLYCOL 3350 17 GM PACKET. PO SCH (08:36)
[2019-10-01] MEDS: DULoxetine HCL 60 MG CAPSULE.DR PO SCH (08:36)
[2019-10-01] MEDS: risperiDONE 0.5 MG TABLET. PO SCH (08:36)
[2019-10-01] MEDS: POLYVINYL ALCOHOL 1.4% OPHTH SOLUTION 15ML BOTTLE. OU PRN (08:36)
[2019-10-01] MEDS: POTASSIUM CHLORIDE 20 MEQ TABLET.ER. PO SCH (08:36)
[2019-10-01] MEDS: CYANOCOBALAMIN (VITAMIN B-12) 1,000 MCG TABLET. PO SCH (08:36)
[2019-10-01] MEDS: METOPROLOL TART IMMED RELEASE 25 MG TABLET PO SCH (08:36)
[2019-10-01] MEDS: traMADol 50 MG TABLET PO PRN (08:42)
[2019-10-01] MEDS: METHYL SALICYLATE/MENTHOL TOPICAL OINTMENT 57GM TUBE. TP PRN (08:43)
== END 2019-10-01 12:57 | DRG 885 ==
LOC: ER 14:56 → GEROPSY 17:56
PROVIDERS: ADMIT Psychiatry & Neurology Psychiatry; ATTEND Psychiatry & Neurology Psychiatry
DX: F25.0 Schizoaffective disorder, bipolar type (principal); R45.851 Suicidal ideations; R47.01 Aphasia; N39.0 Urinary tract infection, site not specified; F41.9 Anxiety disorder, unspecified; F63.9 Impulse disorder, unspecified; K21.9 Gastro-esophageal reflux disease without esophagitis; I10 Essential (primary) hypertension; M06.9 Rheumatoid arthritis, unspecified; Z66 Do not resuscitate; E78.5 Hyperlipidemia, unspecified; S80.11XA Contusion of right lower leg, initial encounter; E11.9 Type 2 diabetes mellitus without complications; G89.29 Other chronic pain; R13.10 Dysphagia, unspecified; Z79.899 Other long term (current) drug therapy; Z87.440 Personal history of urinary (tract) infections; Z88.8 Allergy status to other drugs, medicaments and biological substances; S00.03XA Contusion of scalp, initial encounter
CPT/HCPCS: 36415; 70450; 72125; 73590; 73630; 80053; 80061; 80178; 80329; 81001; 82306; 82553; 82607; 82947; 83036; 83540; 83550; 83735; 84436; 84443; 84480; 84484; 85025; 85610; 85730; 86592; 87086; 93005; 93971; G0480; P9612; 82003; 97110; 97530; 99285-25